=== PATIENT | male | born 1985 | race Caucasian/White ===

== ENCOUNTER 2020-12-05 15:42 | Outpatient (REF) | payer OTHER, SELFPAY ==
[2020-12-05 15:45] LABS: MANUAL DIFF FLAG NO
[2020-12-05 15:50] LABS: Basophils Absolute Auto 0.1 X10*3/uL (0.0-0.2); Basophils Percent Auto 1.1 % (0-2); Eosinophils Absolute Auto 0.2 X10*3/uL (0.0-0.4); Hematocrit 45.4 % (42-52); Hemoglobin 15.9 g/dl (14.0-18.0); Imm Gran Abs Auto 0.03 X10*3/uL (0.00-0.03); Imm Gran Pct Auto 0.4 % (0.0-0.4); Lymphocytes Percent Auto 39.6 % (20-40); Mean Corpuscular Hemoglobin 31.9 pg (27.0-33.0); Mean Corpuscular Volume 91.2 fL (80-98); Mean Platelet Volume 10.3 fL (9.4-12.4); Monocytes Absolute Auto 0.8 X10*3/uL (0.1-1.2); Neutrophils Absolute Auto 3.6 X10*3/uL (2.0-8.3); Neutrophils Percent Auto 46.9 % (45-73); Platelet Count 269 X10*3/uL (160-400); Red Blood Count 4.98 X10*6/uL (4.60-5.80); Red Cell Distribution Width 12.7 % (11.0-16.0); White Blood Count 7.6 X10*3/uL (4.8-10.8)
[2020-12-05 16:00] LABS: Glucose Urine UA NEG (NEG); Leukocyte Esterase Urine NEG (NEG); Nitrite Urine NEG (NEG); Urine Blood NEG (NEG); Urine Ketones NEG (NEG); Urine Protein NEG (NEG-TRACE)
[2020-12-05 16:07] LABS: Appearance Urine CLEAR; Color Urine YELLOW
[2020-12-05 16:14] LABS: Alanine Aminotransferase 55 U/L (0-40); Albumin Level 4.7 g/dL (3.5-5.0); Alkaline Phosphatase 49 U/L (39-117); Anion Gap 16 (12-20); Aspartate Amino Transferase 38 U/L (5-37); Bilirubin Total 0.9 mg/dL (0.0-1.0); Blood Urea Nitrogen 13 mg/dL (9-16); Calcium 10.2 mg/dL (8.4-10.2); Carbon Dioxide 26 mmol/L (22-29); Chloride 100 mmol/L (96-108); Cholesterol 242 mg/dL; Estimated Glomerular Filt Rate > 60; Glucose Fasting 105 mg/dL (60-99); HDL Cholesterol 57 mg/dL; LDL Cholesterol Calculated 112 mg/dl; Potassium 4.3 mmol/L (3.3-5.1); Sodium 138 mmol/L (135-145); Total Protein 7.6 g/dL (6.5-8.0); Triglycerides 366 mg/dL
== END 2020-12-05 15:43 | disposition home or self-care (01) ==
LOC: HO.LNP 15:42
PROVIDERS: Visit Provider Internal Medicine
DX: Z00.00 Encounter for general adult medical examination without abnormal findings (principal); I10 Essential (primary) hypertension; D72.820 Lymphocytosis (symptomatic)
CPT/HCPCS: 80053; 80061; 81003; 85025

== ENCOUNTER 2021-01-23 14:56 | Outpatient (REF) | payer OTHER, SELFPAY ==
[2021-01-23 15:33] LABS: Alanine Aminotransferase 47 U/L (0-40); Albumin Level 4.4 g/dL (3.5-5.0); Alkaline Phosphatase 52 U/L (39-117); Aspartate Amino Transferase 31 U/L (5-37); Bilirubin Direct 0.3 mg/dL (0.0-0.5); Bilirubin Total 0.8 mg/dL (0.0-1.0); Total Protein 7.3 g/dL (6.5-8.0)
== END 2021-01-23 14:57 | disposition home or self-care (01) ==
LOC: HO.LNP 14:56
PROVIDERS: Visit Provider Internal Medicine
DX: R79.89 Other specified abnormal findings of blood chemistry (principal)
CPT/HCPCS: 80076

== ENCOUNTER 2021-12-16 10:49 | Outpatient (REF) | payer OTHER, SELFPAY ==
[2021-12-16 10:53] LABS: MANUAL DIFF FLAG NO
[2021-12-16 11:50] LABS: Basophils Absolute Auto 0.1 X10*3/uL (0.0-0.2); Basophils Percent Auto 1.1 % (0-2); Eosinophils Absolute Auto 0.2 X10*3/uL (0.0-0.4); Eosinophils Percent Auto 2.4 % (0-4); Hematocrit 45.9 % (42.0-52.0); Imm Gran Abs Auto 0.02 X10*3/uL (0.00-0.03); Imm Gran Pct Auto 0.3 % (0.0-0.4); Lymphocytes Absolute Auto 3.4 X10*3/uL (1.2-4.9); Lymphocytes Percent Auto 44.6 % (20-40); Mean Corpuscular HGB Conc 34.9 g/dl (31.0-36.0); Mean Corpuscular Hemoglobin 32.2 pg (27.0-33.0); Mean Corpuscular Volume 92.4 fL (80.0-98.0); Mean Platelet Volume 10.4 fL (9.4-12.4); Monocytes Absolute Auto 0.7 X10*3/uL (0.1-1.2); Monocytes Percent Auto 9.1 % (2-11); Neutrophils Absolute Auto 3.2 x10*3/uL (2.0-8.3); Neutrophils Percent Auto 42.5 % (45-73); Platelet Count 271 X10*3/uL (160-400); Red Blood Count 4.97 X10*6/uL (4.60-5.80); Red Cell Distribution Width 12.3 % (11.0-16.0); White Blood Count 7.6 X10*3/uL (4.8-10.8)
[2021-12-16 11:57] LABS: Appearance Urine CLEAR; Color Urine YELLOW; Glucose Urine UA NEG (NEG); Leukocyte Esterase Urine NEG (NEG); Nitrite Urine NEG (NEG); Specific Gravity - Urine 1.015 (1.005-1.025); Urine Blood NEG (NEG); Urine Ketones NEG (NEG); Urine Protein NEG (NEG-TRACE)
[2021-12-16 12:04] LABS: Alanine Aminotransferase 67 U/L (0-40); Albumin Level 4.2 g/dL (3.5-5.0); Alkaline Phosphatase 58 U/L (39-117); Anion Gap 16 (12-20); Aspartate Amino Transferase 40 U/L (5-37); Bilirubin Total 0.7 mg/dL (0.0-1.0); Blood Urea Nitrogen 12 mg/dL (9-16); Calcium 9.8 mg/dL (8.4-10.2); Carbon Dioxide 27 mmol/L (22-29); Chloride 100 mmol/L (96-108); Cholesterol 241 mg/dL; Estimated Glomerular Filt Rate > 60; Glucose Fasting 115 mg/dL (60-99); HDL Cholesterol 52 mg/dL; Potassium 4.2 mmol/L (3.3-5.1); Sodium 139 mmol/L (135-145); Total Protein 7.2 g/dL (6.5-8.0); Triglycerides 590 mg/dL
[2021-12-16 12:14] LABS: RBC Urine 0 /HPF (0); WBC Urine 0 /HPF (0-4)
== END 2021-12-16 10:50 | disposition home or self-care (01) ==
LOC: HO.LNP 10:49
PROVIDERS: Visit Provider Internal Medicine
DX: Z00.00 Encounter for general adult medical examination without abnormal findings (principal); I10 Essential (primary) hypertension; D72.820 Lymphocytosis (symptomatic)
CPT/HCPCS: 80053; 80061; 81001; 85025

== ENCOUNTER 2023-06-23 09:18 | Outpatient (REF) | payer OTHER, SELFPAY ==
--- NOTE | ~2023-06-23 | FL_ITS ---
EXAMINATION: XR FLUOROSCOPY UPPER GI WITH AIR CLINICAL INFORMATION: Reflux. COMPARISON: None TECHNIQUE: Fluoroscopic air contrast upper GI examination was performed utilizing standard techniques with thin and thick barium and effervescent granules. Numerous spot images were obtained. FINDINGS: Dual and single contrast images of the esophagus demonstrate a patulous esophagus. No evidence of stricture, mass, or ulcerations identified. Minimal contrast is seen entering the stomach, concerning for dysfunction of the LES. A malignant stricture at the GE junction cannot be ruled out. FLUOROSCOPY TIME: 3 minutes 55 seconds Number of Cine: 15 DOSE AREA PRODUCT: 2747 uGy-m2 (microgray-meter squared) FL/FL upper GI series IMPRESSION: 1. Dilated esophagus with minimal emptying of contrast into the stomach concerning for dysfunction of the LES, likely achalasia. A malignant or possibly benign stricture cannot be excluded. Recommend gastroenterology consultation for endoscopic evaluation. Dr. Toure was notified regarding these findings This procedure was performed by Francisco Javier Pierre PA-C, and supervised by Dr. Trujillo
== END 2023-06-23 09:19 | disposition home or self-care (01) ==
LOC: HO.XRAY 09:18
PROVIDERS: PCP Internal Medicine; Visit Provider Internal Medicine
DX: K21.00 Gastro-esophageal reflux disease with esophagitis, without bleeding (principal)
CPT/HCPCS: 74240

== ENCOUNTER → 2023-06-23 09:23 | Outpatient (BNV) | payer OTHER, SELFPAY | PROVIDERS: PCP Internal Medicine; Visit Provider Radiology Diagnostic Radiology | DX: K21.9 Gastro-esophageal reflux disease without esophagitis (principal) | CPT/HCPCS: 74246 ==

== ENCOUNTER 2023-08-04 13:24 | Day surgery (SDC) | payer OTHER, SELFPAY ==
--- NOTE | 2023-08-03 09:53 | HO.ANESPROP2 ---
Documented by User: Mita Sherman NP 08/03/23 09:53 HPI - Anesthesia Eval Consult details Narrative: 38yo M for Upper Endoscopy with Balloon Dilitation [facility] Past Medical History Medical History Lymphocytosis GERD (gastroesophageal reflux disease) Anxiety Depression HTN (hypertension) Social History Social History Patient Tobacco Use Status: Never used Tobacco Meds Allergies Allergy/AdvReac Type Severity Reaction Status Date / Time No Known Allergies Allergy Verified 08/04/23 14:01 Home Medications Medication Instructions Recorded Confirmed Last Taken Type amlodipine 10 mg tablet 10 mg PO DAILY 08/03/23 08/03/23 Unknown History citalopram 20 mg tablet 20 mg PO DAILY 08/03/23 08/03/23 Unknown History pantoprazole 40 mg tablet,delayed 40 mg PO DAILY 08/03/23 08/03/23 Unknown History release valsartan 320 1 tab PO DAILY 08/03/23 08/03/23 Unknown History mg-hydrochlorothiazide 12.5 mg tablet Assessment and Plan Assessment Anesthesia Assessment: Chart Reviewed Documented by User: Caroline Bustillos MD 08/04/23 14:03 [facility] Past Medical History Medical History Lymphocytosis GERD (gastroesophageal reflux disease) Anxiety Depression HTN (hypertension) Social History Social History Patient Tobacco Use Status: Never used Tobacco Meds Allergies Allergy/AdvReac Type Severity Reaction Status Date / Time No Known Allergies Allergy Verified 08/04/23 14:01 Home Medications Medication Instructions Recorded Confirmed Last Taken Type amlodipine 10 mg tablet 10 mg PO DAILY 08/03/23 08/03/23 Unknown History citalopram 20 mg tablet 20 mg PO DAILY 08/03/23 08/03/23 Unknown History pantoprazole 40 mg tablet,delayed 40 mg PO DAILY 08/03/23 08/03/23 Unknown History release valsartan 320 1 tab PO DAILY 08/03/23 08/03/23 Unknown History mg-hydrochlorothiazide 12.5 mg tablet Exam Airway Mallampati Class: II TM Dist: >3cm Neck ROM: Full Loose/Missing/Broken Teeth: No Heart: RRR Lungs: CTA Assessment and Plan Assessment Anesthesia Assessment: Anesthesia Plan Discussed Final Anesthetic Review NPO: Yes ASA Class: II Final Preanesthetic Review: Meds/Allgs Chart Reviewed, Consent Obtained/Reviewed and Anes Risks/Benef Reviewed Patient Risk: Low Procedure Risk: Intermediate Anesthetic Plan Anesthetic Plan: MAC: Disposition: Standard PACU
[2023-08-04 13:35] VITALS: BMI 29.2
[2023-08-04 13:39] VITALS: BMI 29.3
[2023-08-04] MEDS: Lactated Ringers 1,000 ML 100 ML IVCONT (13:53)
--- NOTE | 2023-08-04 14:02 | MHC.SHP ---
Pre-Procedural Eval Section A Date of Service: 08/04/23 The patient is an INPATIENT: No Changes since office visit: No Cold of Flu in the past 2 weeks, No New Medical Problems, No Changes in Medication and No Patient answered all questions The History & Physical has been completed within 30 days and I have reviewed it.: Yes Section B Chief Complaint: Abnormal findings on diagnostic imaging of other p Allergies: Allergies Allergy/AdvReac Type Severity Reaction Status Date / Time No Known Allergies Allergy Verified 08/04/23 14:01 Plan I have reviewed the history and physical and performed a pertinent physical examination on my patient. No changes have occurred unless specified. Time Spent With Patient Time: Total time managing care of this patient today ____ minutes.
[2023-08-04 14:48] VITALS: BP 137/88; PULSE 77; RESP 18; TEMP 36.1; O2SAT 97
[2023-08-04 15:06] VITALS: BP 132/96; PULSE 65; RESP 16; TEMP 36.3; O2SAT 97
--- NOTE | 2023-08-04 22:09 | OP_ITS ---
DATE OF SERVICE: 08/04/2023 SURGEON: Tanmay Goodman MD INDICATIONS: Dysphagia and abnormal upper GI series. PREOPERATIVE DIAGNOSIS: POSTOPERATIVE DIAGNOSIS: PROCEDURE PERFORMED: Upper endoscopy with balloon dilation and biopsy. ESTIMATED BLOOD LOSS: COMPLICATIONS: ANESTHESIA: Monitored anesthesia care. ASSISTANTS: SPECIMENS: DESCRIPTION OF PROCEDURE: A history and physical was performed. The risks and benefits of the procedure were explained to the patient. Informed consent was obtained. The patient was placed in the left lateral decubitus position. The Olympus video gastroscope was introduced into the esophagus, stomach, and duodenum. Examination was performed. The scope was removed. He tolerated the procedure well and was taken to the recovery area in stable condition. FINDINGS: Esophagus: The esophagus was dilated and showed some retained food and saliva suggestive of underlying achalasia. The EG junction did not appear to appropriately relax. Two large pieces of food were pushed through into the stomach easily with no difficulty. Stomach: The stomach showed a couple of benign-appearing gastric polyps in the body measuring less than 5 mm. Duodenum: The bulb and 2nd portion were normal. Biopsies were obtained from the antrum and gastric polyps in the stomach. Next, balloon dilation of the EG junction to 20 mm was performed for 2 inflations for 60 seconds each with no difficulty. The scope easily passed through into the stomach following dilation. Biopsies were then obtained from the EG junction, which showed no evidence of malignancy. Retroflexed examination in the stomach was also normal. IMPRESSION: Achalasia. RECOMMENDATION: 1. Follow up the biopsy results. 2. Further diagnosis with motility testing will be arranged pending his clinical course. MD ROSAURA Drake/GISELLE / [phone]
== END 2023-08-04 15:39 | disposition home or self-care (01) ==
PROVIDERS: PCP Internal Medicine; Visit Provider Internal Medicine Gastroenterology
PROC: (CPT 43249; principal; 2023-08-04 14:50)
DX: R13.19 Other dysphagia (principal); K22.0 Achalasia of cardia; K29.50 Unspecified chronic gastritis without bleeding; K31.7 Polyp of stomach and duodenum; K21.9 Gastro-esophageal reflux disease without esophagitis; I10 Essential (primary) hypertension; D72.820 Lymphocytosis (symptomatic); F41.9 Anxiety disorder, unspecified; Z79.899 Other long term (current) drug therapy
CPT/HCPCS: 43249; 43239; 88305; 88342; C1726; C9113; J1596; J2704; J3010

== ENCOUNTER 2024-04-27 11:04 | Outpatient (REF) | payer OTHER, SELFPAY ==
[2024-04-27 11:14] LABS: MANUAL DIFF FLAG NO
[2024-04-27 12:24] LABS: Basophils Absolute Auto 0.1 X10*3/uL (0.0-0.2); Basophils Percent Auto 1.3 % (0-2); Eosinophils Absolute Auto 0.2 X10*3/uL (0.0-0.4); Eosinophils Percent Auto 2.8 % (0-4); Hematocrit 45.6 % (42.0-52.0); Hemoglobin 16.1 g/dl (14.0-18.0); Imm Gran Abs Auto 0.03 X10*3/uL (0.00-0.03); Imm Gran Pct Auto 0.4 % (0.0-0.4); Lymphocytes Absolute Auto 2.9 X10*3/uL (1.2-4.9); Lymphocytes Percent Auto 36.5 % (20-40); Mean Corpuscular HGB Conc 35.3 g/dl (31.0-36.0); Mean Corpuscular Volume 93.4 fL (80.0-98.0); Mean Platelet Volume 10.3 fL (9.4-12.4); Monocytes Absolute Auto 0.6 X10*3/uL (0.1-1.2); Monocytes Percent Auto 8.1 % (2-11); Neutrophils Percent Auto 50.9 % (45-73); Platelet Count 268 X10*3/uL (160-400); Red Blood Count 4.88 X10*6/uL (4.60-5.80); Red Cell Distribution Width 12.2 % (11.0-16.0); White Blood Count 7.9 X10*3/uL (4.8-10.8)
[2024-04-27 12:29] LABS: Appearance Urine Clear; Color Urine Straw; Glucose Urine UA Negative (Negative); Leukocyte Esterase Urine Negative (Negative); Nitrite Urine Negative (Negative); PH 7.5 (5.0-9.0); Specific Gravity - Urine 1.015 (1.005-1.025); Urine Blood Negative (Negative); Urine Ketones Negative (Negative); Urine Protein Negative (Neg-Trace)
[2024-04-27 12:34] LABS: Bacteria Urine None Seen (None Seen); Hyaline Casts Urine 0-2 /LPF (0-2); RBC Urine 0-2 /HPF (0-2); Squamous Epithelial Cell Urine 0-2 /HPF (0-2); WBC Urine 0-5 /HPF (0-5)
[2024-04-27 12:43] LABS: Alanine Aminotransferase 83 U/L (0-40); Albumin Level 4.3 g/dL (3.5-5.0); Alkaline Phosphatase 58 U/L (39-117); Anion Gap 14 (12-20); Aspartate Amino Transferase 63 U/L (5-37); Bilirubin Total 0.8 mg/dL (0.0-1.0); Blood Urea Nitrogen 10 mg/dL (9-16); Calcium 9.9 mg/dL (8.4-10.2); Carbon Dioxide 29 mmol/L (22-29); Chloride 100 mmol/L (96-108); Cholesterol 220 mg/dL (<200); Estimated Glomerular Filt Rate > 60; Glucose Fasting 104 mg/dL (60-99); HDL Cholesterol 67 mg/dL (>40); LDL Cholesterol Calculated 122 mg/dL (<100); Potassium 4.1 mmol/L (3.3-5.1); Sodium 139 mmol/L (135-145); Total Protein 7.4 g/dL (6.5-8.0); Triglycerides 156 mg/dL (<150)
[2024-04-27 12:50] LABS: Cortisol Random 18.6 ug/dL
[2024-04-27 12:51] LABS: PSA,Total (Free>4and<10) 0.66 ng/mL (0.00-4.00)
[2024-04-27 12:57] LABS: TSH reflex Free T4 3.11 uIU/mL (0.32-4.0)
[2024-05-05 21:42] LABS: Testosterone, Total 502 ng/dL (250-1100)
== END 2024-04-27 11:05 | disposition home or self-care (01) ==
LOC: HO.LNP 11:04
PROVIDERS: Visit Provider Internal Medicine
DX: Z00.00 Encounter for general adult medical examination without abnormal findings (principal); I10 Essential (primary) hypertension; D72.820 Lymphocytosis (symptomatic); E78.1 Pure hyperglyceridemia; F43.10 Post-traumatic stress disorder, unspecified; Z12.5 Encounter for screening for malignant neoplasm of prostate
CPT/HCPCS: 80053; 80061; 81001; 82533; 84153; 84403; 84443; 85025

== ENCOUNTER 2024-10-02 10:19 | Outpatient (REF) | payer BC, SELFPAY ==
--- OUTSIDE RECORDS SUMMARY | 2024-10-02 11:36 | XMS_ITS ---
Author Organization Jimmy Toure MD Address [address] [place] [phone] Care Team Providers Care Lead Nuclear Medicine Technologist Name Role Phone Jimmy Toure Primary Care Provider Allergies No Known Allergies Results Component Value Reference Range Notes Occult Blood, Stool, Guaiac Reviewed date:05/05/2024 02:02:19 PM Interpretation:Negative Performing Lab: Notes/Report: Negative Occult Blood, Stool, Guaiac Neg REASON FOR VISIT annual visit/ must see back LFT's, had upper endoscopy with dilitation at in [place] Medications Medication SIG (Take, Route, [...] Problem Status W/U Status Risk Notes Problem [id number] Achalasia, esophageal (K22.0) Active confirmed Vital Signs Blood pressure systolic 120 mm Hg 05/05/20 24 Blood pressure diastolic 100 mm Hg 024 Height 69 in 05/05/2024 Weight 205 lbs 05/05/2024 BMI 30.27 kg/m2 05/05/2024 Encounters Encounter Location Date Provider Diagnosis Jimmy Toure MD [address] [place] [address] [place] [phone] 05/05/2024 Jimmy Toure Essential hypertension I10 ; [...] (ICD-10 - K22.0) seeing a psych in [place] 05/05/2024 History of gout (ICD-10 - Z87.39) [...] counciller Achalasia, esophageal seeing a psych in [place] Elevated LFTs says he is drinking too much. will recheck in six months Colon cancer screening guaiac negative Depression screening negative screen Next Appt Details Follow Up: 3 Months, Reason: Provider Name:Jimmy lindsey, 2025 07:45:00 AM, [address] [place] [address], [address], [phone], Provider Name:Jimmy lindsey, 05/08/2025 01:00:00 PM, [address] [place] [address], Suite [facility], [place], [place], [phone], Progress Notes * ALINE NORWOODDOB:1985 (39 yo M)Acc No.[id number]:05/05/2024 Progress Notes Patient:?ALINE NORWOOD Provider:?Jimmy Toure MD :1985???Age:39 Y???Sex:Male Destin e:05/05/2024 Address:[address] [place] [address] [phone] Subjective: * Chief Complaints: * ???annual visit/ must see noris thuy SEAY'shad upper endoscopy with dilitation at in [place] * HPI: ???Depression Screening:?PHQ-9?Little interest or pleasure in doing things?Not at all,?Feeling down, depressed, or hopeless?Not at all,?Trouble falling or staying asleep, or sleeping too much?Not at all,?Feeling tired or having little energy?Not at all,?Poor appetite or overeating?Not at all,?Feeling bad about yourself or that you are a failure, or have let yourself or your family down?Not at all,?Trouble concentrating on things, such as reading the newspaper or watching television?Not at all,?Moving or speaking so slowly that other people could have noticed; or the opposite, being so fidgety or restless that you have been moving around a lot more than usual?Not at all,?Thoughts that you would be better off or of hurting yourself in some way?Not at all,?Total Score?0.?Interpretation and Intervention?Depression Screening Findings?Negative,?Follow-Up for Depression?: review of PHQ-9 found negative result, no follow-up needed.?Symptom(s):? patient is a 39 yo male here or annual visit with review of recent labs and follow up of chronic isues, last endoscopy worked. had lost 25 lbs. * ROS:?General/Constitutional:?Patient denies?chills, fatigue, fever, headache.?Change in appetite?denies.?Chills?denies.?Fever?denies.?Ophthalmologic:?Blurred vision?denies.?Discharge?denies.?Pain?denies.?ENT:?Patient denies?decreased sense of smell, any loss of taste, sore throat.?Decreased hearing?denies.?Sore throat?denies.?Swollen glands?denies.?Endocrine:?Cold intolerance?denies.?Excessive thirst?denies.?Heat intolerance?denies.?Weight loss?denies.?Respiratory:?Cough?denies.?Shortness of breath at rest?denies.?Shortness of breath with exertion?denies.?Wheezing?denies.?Cardiovascular:?Chest pain at rest?denies.?Chest pain with exertion?denies.?Irregular heartbeat?denies.?Shortness of breath?denies.?Gastrointestinal:?Abdominal pain?denies.?Change in bowel habits?denies.?Diarrhea?denies.?Nausea?denies.?Rectal bleeding?denies.?Vomiting?denies .?Genitourinary:?Blood in urine?denies.?Difficulty urinating?denies.?Frequent urination?denies.?Musculoskeletal:?Patient denies?muscle aches.?Painful joints?denies.?Weakness?denies.?Peripheral Vascular:?Patient denies?red and blue toes.?Skin:?Dry skin?denies.?Itching?denies.?Denies?Mole(s),? changes in moles, new moles or any lesions of concern.?Denies?Photosensitivity.?Rash?denies.?Neurologic:?Dizziness?denies.?Fainting?denies.?Headache?denies.? * Medical History:? * Surgical History:? * Hospitalization/Major Diagno stic Procedure:? * Family History:?Father: dece ased 38 yrs.?Mother: alive 63 yrs.?1 sister(s) . .? Father- Suicide mother- Healthy, Denies mental health/substance abuse family history, Denies mental health/substance abuse family history. * Social History:?Tobacco Use:?Tobacco Use/Smoking?Patient is a?nonsmoker,?Additional Findings: Tobacco Non-User?Current non-smoker, currently using no form of tobacco.?Drugs/Alcohol:?Alcohol Screen?Did you have a drink containing alcohol in the past year??Yes,?How often did you have a drink containing alcohol in the past year??2 to 4 times a month (2 points),?How many drinks did you have on a typical day when you were drinking in the past year??1 or 2 drinks (0 point),?How often did you have 6 or more drinks on one occasion in the past year??Never (0 point),?Points?2,?Interpretation?Negative.?Miscellaneous:?Caffeine: yes, frequency: once a week. no Children. Exercise: yes, 1-2 times per week biking 20-30 miles a couple times a week. Home smoke detector use: yes. Housing: owning. Living with: alone. Marital status: single. Occupation: works part-time. Pets: dog x1. no Travel outside of the [place]. * Medications:?TakingCitalopra m Hydrobromide 20 MG Tablet TAKE 1 TABLET [...] reviewed and reconciled with the patient * Allergies:?N.K.D.A.yes[Aller gies Verified] Objective: * Vitals:?Ht: 69, Wt:205, BMI: 30.27, BP:120/100. * ???Past Orders: ???Lab:Lipid Panel (Order Da te - 04/27/2024) (Collection Date - 04/27/2024) ? Value Reference Range ?Triglycerides 156 H <150 - mg/dL ?Cholesterol 220 H <200 - m g/dL ?LDL Cholesterol Calculated 122 H <100 - mg/dL ?HDL Cholesterol 67 >40 - mg/dL ???Lab:Complete Blood Count Auto Diff (Order Date - 04/27/2024) (Collection Date - 04/27/2024) ? Value Reference Range ?White Blood Count 7.9 4. 8-10.8 - X10*3/uL ?Red Blood Count 4.88 4.60 -5.80 - X10*6/uL ?Hemoglobin 16.1 14.0-18.0 - g/dl ?Hematocrit 45.6 42.0-52.0 - % ?Mean Corpuscular Volume 93.4 80.0-98.0 - fL ?Mean Corpuscular Hemoglobin 33.0 27.0-33.0 - pg ?Mean Corpuscular HGB Conc 35.3 31.0-36.0 - g/dl ?Red Cell Distribution Width 12.2 11.0-16.0 - % ?Platelet Count 268 160-4 00 - X10*3/uL ?Mean Platelet Volume 10.3 9.4-12.4 - fL ?Neutrophils Percent Auto 50.9 45-73 - % ?Imm Gran Pct Auto 0.4 0. 0-0.4 - % ?Lymphocytes Percent Auto 36.5 20-40 - % ?Monocytes Percent Auto 8.1 2-11 - % ?Eosinophils Percent Auto 2.8 0-4 - % ?Basophils Percent Auto 1.3 0-2 - % ?NRBC Pct Auto 0.0 0.0-0. 2 - /100WBC ?Neutrophils Absolute Auto 4.0 2.0-8.3 - x10*3/uL ?Imm Gran Abs Auto 0.03 0. 00-0.03 - X10*3/uL ?Lymphocytes Absolute Auto 2.9 1.2-4.9 - X10*3/uL ?Monocytes Absolute Auto 0.6 0.1-1.2 - X10*3/uL ?Eosinophils Absolute Auto 0.2 0.0-0.4 - X10*3/uL ?Basophils Absolute Auto 0.1 0.0-0.2 - X10*3/uL ?NRBC Abs Auto 0.000 0.0-0. 012 - X10*3/uL ???Lab:Cortisol Random (Orde r Date - 04/27/2024) (Collection Date - 04/27/2024) ? Value Reference Range ?Cortisol Random 18.6 - ug /dL ???Lab:UA ClnCatch+Micro w/r flx Cult (Order Date - 04/27/2024) (Collection Date - 04/27/2024) ? Value Reference Range ?Color Urine Straw - ?Appearance Urine Clear - ?PH 7.5 5.0-9.0 - ?Glucose Urine UA Negative Neg ative - mg/dL ?Urine Blood Negative Negative - ?Specific [place] - Urine 1.015 1.005-1.025 - ?Urine Protein Negative Neg-Tr noel - mg/dL ?Urine Ketones Negative Negati ve - mg/dL ?Nitrite Urine Negative Negati ve - ?Leukocyte Esterase Urine Negative Negative - ?RBC Urine 0-2 0-2 - /HPF ?WBC Urine 0-5 0-5 - /HPF ?Squamous Epithelial Cell Urine 0-2 0-2 - /HPF ?Bacteria Urine None Seen None Seen - ?Hyaline Casts Urine 0-2 0-2 - /LPF ???Lab:TSH reflex Free T4 (O rder Date - 04/27/2024) (Collection Date - 04/27/2024) ? Value Reference Range ?TSH reflex Free T4 3.11 0 .32-4.0 - uIU/mL ???Lab:PSA,Total (Free>4and< 10) (Order Date - 04/27/2024) (Collection Date - 04/27/2024) ? Value Reference Range ?PSA,Total (Free>4and<10) 0.66 0.00-4.00 - ng/mL * Examination: ???General Examination: ?GENERAL APPEARANCE:?well developed, well nourished, in no acute distress.?HEAD:?normocephalic, atraumatic.?EYES:?pupils equal, round, reactive to light and accommodation, sclera non-icteric.?EARS:?normal.?ORAL CAVITY:?mucosa moist.?THROAT:?clear.?NECK/THYROID:?neck supple, full range of motion, no cervical lymphadenopathy, no bruits.?SKIN:?warm and dry, no suspicious lesions.?HEART:?regular rate and rhythm, S1, S2 normal, no murmurs.?LUNGS:?clear to auscultation bilaterally.?ABDOMEN:?soft, nontender, nondistended, bowel sounds present, normal, no organomegaly , no masses palpable.?RECTAL EXAM:?normal tone, no external hemorrhoids, no masses palpable, prostate normal, stool guaiac negative.?MALE GENITOURINARY:?circumcised, no testicular mass, testes descended bilaterally.?EXTREMITIES:?no clubbing, cyanosis, or edema.?NEUROLOGIC:?nonfocal, motor strength normal upper and lower extremities, sensory exam intact.? Assessment: * Assessment: 1.?Annual physical exam - Z0 0.00 (Primary)?2.?Essential hypertension - I10?3.?Anxiety - F41.9?4.?PTSD (post-traumatic stress disorder) - F43.10?5.?Achalasia, esophageal - K22.0?6.?History of gout - Z87.39?7.?Elevated LFTs - R79.89 8.?Colon cancer screening - Z12.11?9.?Depression screening - Z13.31? Plan: * Treatment: 2.?Essential hypertension? Continue Valsartan-hydroCHLOROthiazide Tablet, 320-12.5 MG, 1 tablet, Orally, Once a day, 90 days, 90, Refills 4;?Continue amLODIPine Besylate Tablet, 10 MG, take 1 tablet by mouth every day, Orally, Once a day, 90 days, 90, Refills 4.?? Notes: need testerone level. bp sitll a little high but doesn't take medicines, testosterone is pending with [facility]?? 3.?Anxiety? Continue Citalopram Hydrobromide Tablet, 20 MG, take 1 tablet by mouth every day, Orally, Once a day, 90 days, 90, Refills 3.?? Notes: stable?? 4.?PTSD (post-traumatic stre ss disorder)? Notes: seeing a counciller?? 5.?Achalasia, esophageal? Notes: seeing a psych in [place]?? 6.?History of gout? Continue Indomethacin Capsule, 50 MG, 1 capsule with food or milk, Orally, Three times a day, 10 days, 30 Capsule, Refills 2.?? 7.?Elevated LFTs? Notes: says he is drinking too much. will recheck in six months?? 8.?Colon cancer screening?LAB: Occult Blood, Stool, Guaiac?Negative ? Value Reference Range ?Occult Blood, Stool, Guaiac Neg Notes: guaiac negative??9.?Depression screening? Notes: negative screen?? * Procedure Codes:?40909 TEST FOR BLOOD, FECES * Preventive Medicine:? ??Counseling:?Care goal follow-up plan:?Counseling for abnormal BMI provided?Yes,?Above Normal BMI Follow-up?Giving encouragement to exercise.? * Follow Up:?3 Months * * Sign off status: Completed true * Provider:?Jimmy Toure MD Date:?1 Generated for Palmira peres/Willian/Tamikoitting on:?10/02/2024 11:36 AM EDT History and Physical Notes * HPI [...]
--- OUTSIDE RECORDS SUMMARY | 2024-10-02 11:36 | XMS_ITS | Encounter Summary ---
Author Organization [facility] Address [address] [place] [address] Care Team Providers Care Bench Machine Operator Name Role Phone Jimmy Toure MD Primary Care Provider [phone] Encounter Details Date Type Department Care Team (Late st Contact Info) Description 12/28/2023 Scanned Document [facility] GASTRO SCAN Gastroenterology, Scan Social History Tobacco Use Types Packs/Day Years Used Date Smoking Tobacco: Never Assessed Sex and Gender Information Value Date Recorded Sex Assigned at Male 12/29/2023 11:32 AM EDT Gender Identity Male 12/29/2023 11:32 AM EDT Sexual Orientation Heterosexual (straight) 12/28 11:32 AM EDT documented as of this encounter Plan of Treatment Not on file documented as of this encounter Visit Diagnoses Not on filedocumented in this encounter Care Teams Bench Machine Operator Relationship Specialty Start Date End Date Jimmy Toure MD [address] [place] [address] [place] [address] PCP - General Internal Medicine 12/28/23 documented as of this encounter
--- OUTSIDE RECORDS SUMMARY | 2024-10-02 11:36 | XMS_ITS ---
Author Organization Jimmy Toure MD Address [address] [place] [phone] Care Team Providers Care County Demonstrator Name Role Phone Jimmy Toure Primary Care Provider REASON FOR VISIT LFT Encounters Encounter Location Date Provider Diagnosis Jimmy Toure MD [address] [place] [phone] 10/02/2024 Jimmy Toure Elevated LFTs R79.89 Assessments Encounter Date Diagnosis (ICD Code) Assessment Notes Treatment Notes Treatment Clinical Notes Section Notes 10/02/2024 Elevated LFTs (ICD-10 - R79.89) Plan Of Treatment Pending Test Test Name Order Date Liver Panel 10/02/2024 Next Appt Details Provider Name:Jimmy lindsey, 2025 07:45:00 AM, [address] [place] [address], [phone], Provider Name:Jimmy lindsey, 05/08/2025 01:00:00 PM, [address] [place] [address], [phone], Progress Notes * ALINE NORWOODDOB:1985 (39 yo M)Acc No.[id number]:10/02/2024 Progress Note Patient:?ALINE NORWOOD Provider:?Jimmy Toure MD :1985???Age:39 Y???Sex:Male Destin e:10/02/2024 Address: [employer] [facility] [id number] Subjective: * Chief Complaints: * ???1. LFT. * Medical History:? Objective: * Vitals:? Assessment: * Assessment: 1.?Elevated LFTs - R79.89??? Plan: * Treatment: * Procedure Codes:?86290 VENIP UNCT, ROUTINE* * * The named appointment provid er may or may not be the originator of this progress note, and it is not deemed complete until electronically signed by the appointment provider. Sign off status: Pending * Provider:?Jimmy Toure MD Date:?0 10/02/2024 Generated for Palmira peres/Willian/eTthomsmitting on:?10/02/2024 11:36 AM EDT
--- OUTSIDE RECORDS SUMMARY | 2024-10-02 11:37 | XMS_ITS ---
Author Organization [facility] Address [address] [facility] [address] [place] [phone] Care Team Providers Care Fire Engine Pump Operator Name Role Phone Tejal SCHERER, Jimmy Primary Care Provider Tanmay Adkins Jr REASON FOR VISIT Patient presents today for throwing up, uncomfortable. Encounters Encounter Location Date Provider Diagnosis [facility] [address] [place] [phone] 12/02/2023 Tanmay Goodman Jr Plan Of Treatment No Information Progress Notes * ALINE NORWOOD DDOB:1985 ( 39 yo M)Acc No.[id number]:12/02/2023 Progress Notes Patient:?ALINE NORWOOD Provider:?Tanmay Goodman MD :1985???Age:38 Y???Sex:Male Destin e:12/02/2023 Address:[address] [place] [address] [address] [id number] Pcp:Jimmy Toure MD Subjective: * Chief Complaints: * ???1. Patient presents today for throwing up, uncomfortable.. * Medical History:? Objective: * Vitals:? Assessment: Plan: * Treatment: * * The named appointment provid er may or may not be the originator of this progress note, and it is not deemed complete until electronically signed by the appointment provider. Sign off status: Pending * Provider:?Tanmay Goodman MD Date:?0 12/02/2023 Generated for Palmira peres/Willian/Tamikoitting on:?10/02/2024 11:36 AM EDT
--- OUTSIDE RECORDS SUMMARY | 2024-10-02 11:37 | XMS_ITS | Encounter Summary ---
Author Organization [facility] Address [address] [place] [address] Care Team Providers Care Agronomy Manager Name Role Phone Jimmy Toure MD Primary Care Provider [phone]- [phone] Encounter Details Date Type Department Care Team (Late st Contact Info) Description 01/05/2024 Scanned Document [facility] GASTRO SCAN Gastroenterology, Scan Social History Tobacco [...] on filedocumented in this encounter Care Teams Agronomy Manager Relationship Specialty Start Date End Date Jimmy Toure MD [address] [place] [address] [place] [address] PCP - General Internal Medicine 12/28/23 documented as of this encounter
--- OUTSIDE RECORDS SUMMARY | 2024-10-02 11:37 | XMS_ITS | Patient Health Record ---
Author Organization Jimmy Toure MD Address [address] [place], [place] [id number] Care Team Providers Care Provider Scribe Name Role Phone Jimmy Toure Primary Care Provider Allergies No Known Allergies Results Component Value Reference Range Notes Cortisol Random Reviewed date:04/27/2024 01:04:38 PM Interpretation: Performing Lab:[facility], [address] [place] [phone] Notes/Report: Cortisol Random 18.6 Reference Range*: Before 10 am 6.2-19.4 ug/dL After 5 pm 2.3-11.9 ug/dL *Please interpret above results accordingly. This test was performed using the Green chemiluminescent method. Values obtained from different assay methods cannot be used interchangeably. Patients receiving fludrocortisone, prednisolone or prednisone may show artificially elevated cortisol values due to cross-reactivity. Complete Blood Count Auto Di ff Reviewed date:04/27/2024 12:32:43 PM Interpretation: Performing Lab:[facility], [address] [place] [phone] Notes/Report: White Blood Count 7.9 4.8-10.8 X10*3/uL Red Blood Count 4.88 4.60-5.80 X10*6/uL Hemoglobin 16.1 14.0-18.0 g/dl Hematocrit 45.6 42.0-52.0 % Mean Corpuscular Volume 93.4 80.0-98.0 fL Mean Corpuscular Hemoglobin 33.0 27.0-33.0 pg Mean Corpuscular HGB Conc 35.3 31.0-36.0 g/dl Red Cell Distribution Width 12.2 11.0-16.0 % Platelet Count 268 160-400 X10*3/uL Mean Platelet Volume 10.3 9.4-12.4 fL Neutrophils Percent Auto 50.9 45-73 % Imm Gran Pct Auto 0.4 0.0-0.4 % Lymphocytes Percent Auto 36.5 20-40 % Monocytes Percent Auto 8.1 2-11 % Eosinophils Percent Auto 2.8 0-4 % Basophils Percent Auto 1.3 0-2 % NRBC Pct Auto 0.0 0.0-0.2 /100WBC Neutrophils Absolute Auto 4.0 2.0-8.3 x10*3/u L Imm Gran Abs Auto 0.03 0.00-0.03 X10*3/uL Lymphocytes Absolute Auto 2.9 1.2-4.9 X10*3/u L Monocytes Absolute Auto 0.6 0.1-1.2 X10*3/uL Eosinophils Absolute Auto 0.2 0.0-0.4 X10*3/u L Basophils Absolute Auto 0.1 0.0-0.2 X10*3/uL NRBC Abs Auto 0.000 0.0-0.012 X10*3/uL Comprehensive [place]. Panel Fa st Reviewed date:05/05/2024 12:56:37 PM Interpretation:see back 05-05-24 Performing Lab:[facility], [address] [place] [phone] Notes/Report: Sodium 139 135-145 mmol/L Potassium 4.1 3.3-5.1 mmol/L Chloride 100 96-108 mmol/L Carbon Dioxide 29 22-29 mmol/L Anion Gap 14 12-20 Blood Urea Nitrogen 10 9-16 mg/dL Creatinine 0.85 0.5-1.4 mg/dL Estimated Glomerular Filt Rate > 60 NOTE: For -[place]amb[place] individuals, multiply the result by 1.210. Chronic Kidney Disease: Estimated GFR < 60 mL/min/1.73m2 Severe Kidney Disease: Estimated GFR < 15 mL/min/1.73m2 Glucose Fasting 104 60-99 mg/dL A fasting glucose from 100-125 mg/dl is considered impaired (pre-diabetes). Calcium 9.9 8.4-10.2 mg/dL Bilirubin Total 0.8 0.0-1.0 mg/dL Aspartate Amino Transferase 63 5-37 U/L Alanine Aminotransferase 83 0-40 U/L Total Protein 7.4 6.5-8.0 g/dL Albumin Level 4.3 3.5-5.0 g/dL Alkaline Phosphatase 58 39-117 U/L Lipid Panel Reviewed date:04/27/2024 01:03:36 PM Interpretation: Performing Lab:[facility], [address] [place] [phone] Notes/Report: Triglycerides 156 <150 mg/dL Desirable Triglyceride: less than 150 mg/dL Borderline High Triglyceride 150-199 mg/dL High Triglyceride: 200-499 mg/dL Very High Triglyceride: greater than or equal to 5OO mg/dL Cholesterol 220 <200 mg/dL Desirable Cholesterol: less than 200 mg/dL Borderline High Cholesterol: 200-239 mg/dL High Cholesterol: greater than 239 mg/dL LDL Cholesterol Calculated 122 <100 mg/dL Desirable LDL: less than 100 mg/dL Near Optimal/Above Optimal LDL: 110-129 mg/dL Borderline High LDL: 130-159 mg/dL High LDL: 160-189 mg/dL Very High LDL: greater than or equal to 190 mg/dL HDL Cholesterol 67 >40 mg/dL Desirable HDL: greater than 40 mg/dL Note: This HDL assay may give artificially low results in patients with liver disease. PSA,Total (Free>4and<10) Reviewed date:04/27/2024 01:03:25 PM Interpretation: Performing Lab:[facility], [address] [place] [phone] Notes/Report: PSA,Total (Free>4and<10) 0.66 0.00-4.00 ng/mL A Free PSA was not performed: The percentage of Free PSA can be used to enhance the differentiation of prostate cancer from benign prostatic disease in subjects whose PSA levels are between 4.0 and 10.0 ng/mL. For subjects whose PSA levels are below 4.0 or above 10.0 ng/mL, the risk of prostate cancer is determined on the basis of the PSA alone. Therefore the % Free PSA is recommended only for those subjects whose PSA levels are between 4.0 and 10.0 ng/mL. PSA methodology: Green Alinity i Chemiluminescent Microparticle Immunoassay (CMIA) TSH reflex Free T4 Reviewed date:04/27/2024 01:03:45 PM Interpretation: Performing Lab:[facility], [address] [place] [phone] Notes/Report: TSH reflex Free T4 3.11 0.32-4.0 uIU/mL Testosterone, Total Reviewed date:05/07/2024 09:19:47 AM Interpretation: Performing Lab:[facility], [address] [place] [phone] Notes/Report: Testosterone, Total 256 383-1736 ng/dL For additional information, please refer to http://education.[employer]/faq/ TotalTestosteroneLCMSMSFAQ 165 (This link is being provided for informational/ educational purposes only.) This test was developed and its analytical performance characteristics have been determined by [facility] [place]. It has not been cleared or approved by the U.S. Food and Drug Administration. This assay has been validated pursuant to the CLIA regulations and is used for clinical purposes. THIS TEST WAS PERFORMED AT: [facility]/[address] [phone] BEN SCHMIDT MD,PHD UA [employer] w/rflx Cul t Reviewed date:04/27/2024 04:20:37 PM Interpretation: Performing Lab:[facility], [address] [place] [phone] Notes/Report: Urine, Clean Catch Color Urine Straw Appearance Urine Clear PH 7.5 5.0-9.0 Glucose Urine UA Negative Negative mg/dL Urine Blood Negative Negative Specific [place] - Urine 1.015 1.005-1.025 Urine Protein Negative Neg-Trace mg/dL Urine Ketones Negative Negative mg/dL Nitrite Urine Negative Negative Leukocyte Esterase Urine Negative Negative RBC Urine 0-2 0-2 /HPF WBC Urine 0-5 0-5 /HPF Squamous Epithelial Cell Urine 0-2 0-2 /HPF Bacteria Urine None Seen None Seen Hyaline Casts Urine 0-2 0-2 /LPF Occult Blood, Stool, Guaiac Reviewed date:05/05/2024 02:02:19 PM Interpretation:Negative Performing Lab: Notes/Report: Negative Occult Blood, Stool, Guaiac Neg Reason For Referral No Information Medications Medication SIG (Take, Route, Frequency, Duration) Notes Start Date End Date Status amLODIPine Besylate 10 MG take 1 tablet by mouth every day Orally Once a day for 90 days Active Lisinopril 10 MG 1 tablet Orally Once a day for 30 day(s) Not-Taking Valsartan-hydroCHLOROthia zide 320-12.5 MG 1 tablet Orally Once a day for 90 days Active Fluticasone Propionate 50 MCG/ACT 1 spray in each nostril Nasally Once a day for 30 day(s) 09/29/2019 Not-Taking Citalopram Hydrobromide 20 MG take 1 tablet by mouth every day Orally Once a day for 90 days Active Indomethacin 50 MG 1 capsule with food or milk Orally Three times a day for 10 days 11/07/2020 Active Pantoprazole Sodium 40 MG TAKE 1 TABLET BY MOUTH EVERY DAY FOR 30 DAYS for 90 Active Immunizations Vaccine Route Administration Date Status Comme nts Fluarix Quadrivalent Unknown 12/26/2018 Refused Fluarix Quadrivalent Unknown 07/03/2019 Refused Covid Vaccine Unknown 12/13/2020 Refused Fluarix Quadrivalent - 150 Unknown 04/27/2024 Refused Social History Tobacco Use: Social History Observation [...] Problem Status W/U Status Risk Notes Problem Lymphocytosis (48792417) Lymphocytosis (D72.820) Active confirmed Problem 66089715 Anxiety (F41.9) Active confirmed Problem 39348203 Essential hypertension (I10) Active confirmed Problem 5936019259122212 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 confirmed Problem Hypertriglyceridemia (030792182) Hypertriglyceridemia (E78.1) Active confirmed Problem Posttraumatic stress disorder (61027245) PTSD (post-traumatic stress disorder) (F43.10) Active confirmed Problem 356521184 BMI 31.0-31.9,ad ult (Z68.31) Active confirmed Problem 597331983 Gastroesophageal reflux disease with esophagitis without hemorrhage (K21.00) Active confirmed Problem 22544811 Stricture esopha demi (K22.2) Active confirmed Problem 31751053 Achalasia, esoph ageal (K22.0) Active confirmed Vital Signs Blood pressure diastolic 100 mm Hg 05/05/2024 Height 69 in 05/05/2024 Blood pressure systolic 120 mm Hg 05/05/2024 Weight 205 lbs 05/05/2024 BMI 30.27 kg/m2 05/05/2024 Encounters Encounter Location Date Provider Diagnosis Jimmy Toure MD [address] [place] [address] Drive [address] [place] [phone] 04/27/2024 Jimmy Toure Blood tests for rout ine general physical examination Z00.00 ; Essential hypertension I10 ; Lymphocytosis D72.820 ; Hypertriglyceridemia E78.1 and PTSD (post-traumatic stress disorder) F43.10 Jimmy Toure MD [address] [place] [address] Drive [address] [place] [phone] 10/02/2024 Jimmy Toure Elevated LFTs R79.89 Jimmy Toure MD [address] [place] [address] [address] [place] [id number] 05/05/2024 Jimmy Toure Essential hypertensi on I10 ; Annual physical exam Z00.00 ; Anxiety F41.9 ; PTSD (post-traumatic stress disorder) F43.10 ; Achalasia, esophageal K22.0 ; History of gout Z87.39 ; Elevated LFTs R79.89 ; Colon cancer screening Z12.11 and Depression screening Z13.31 Assessments Encounter Date Diagnosis (ICD Code) Assessment Notes Treatment Notes Treatment Clinical Notes Section Notes 04/27/20[address] ine general physical examination (ICD-10 - Z00.00) 04/27/2024 Essential hypertensi on (ICD-10 - I10) 10/02/2024 Elevated LFTs (ICD-1 0 - R79.89) 05/05/2024 Essential hypertensi on (ICD-10 - I10) need testerone level. bp sitll a little high but doesn't take medicines, testosterone is pending with [facility] 05/05/2024 Annual physical exam (ICD-10 - Z00.00) labs reviewed and discussed with patient 04/27/2024 Lymphocytosis (ICD-1 0 - D72.820) 05/05/2024 Anxiety (ICD-10 - F41.9) stable 04/27/2024 Hypertriglyceridemia (ICD-10 - E78.1) 05/05/2024 PTSD (post-traumatic stress disorder) (ICD-10 - F43.10) seeing a counciller 04/27/2024 PTSD (post-traumatic stress disorder) (ICD-10 - F43.10) 05/05/2024 Achalasia, esophagea l (ICD-10 - K22.0) seeing a psych in [place] 05/05/2024 History of gout (ICD -10 - Z87.39) 05/05/2024 Elevated LFTs (ICD-1 0 - R79.89) says he is drinking too much. will recheck in six months 05/05/2024 Colon cancer screeni ng (ICD-10 - Z12.11) guaiac negative 05/05/2024 Depression screening (ICD-10 - Z13.31) negative screen Plan Of Treatment Pending Test Test Name Order Date XR GI SERIES 04/06/2023 Liver Panel 10/02/2024 Cortisol 04/27/2024 Next Appt Details Provider Name:Jimmy Mtz ier, 2025 07:45:00 AM, [address] [place] [address], [address], [phone], Provider Name:Jimmy Mtz ier, 05/08/2025 01:00:00 PM, [address] [place] [address], Suite [facility], [place], [place], [phone], Insurance Providers Payer Name Payer Address Payer Phone Subscriber Number Group Number Insured Name Patient Relationship to Insured Coverage Start Date Coverage End Date [employer] [facility] [address] [place], [place] [id number] [phone] [id number] 2 ALINE NORWOOD Self - patient is the insured Medical (General) History Medical History History ICD Code Lymphocytosis Lymphocytosis D72.820 08/04/23 colonoscopy pending path
--- OUTSIDE RECORDS SUMMARY | 2024-10-02 11:37 | XMS_ITS ---
Author Organization [facility] Address [address] [place] [phone] Care Team Providers Care Electric Motor Repairman Name Role Phone Tejal SCHERER, Jimmy Primary Care Provider Tanmay Adkins Jr REASON FOR VISIT pathology Encounters Encounter Location Date Provider Diagnosis [facility] [address] [place] [phone] 08/19/2023 Tanmay Goodman Jr Achalasia K22.0 Assessments Encounter Date Diagnosis (ICD Code) Assessment Notes Treatment Notes Treatment Clinical Notes Section Notes 08/19/2023 Achalasia (ICD-10 - K22.0) Esophageal motility testing for diagnosis of achalasia. Plan Of Treatment Treatment Notes Assessment Notes Achalasia Esophageal motility testing for diagnosis of achalasia. Progress Notes * ALINE NORWOOD DDOB:1985 ( 38 yo M)Acc No.[id number]:08/19/2023 Patient:?ALINE NORWOOD :1985???Age:38 Y???Sex:Male Address:[address] [place] [address], [phone] Subjective: * Chief Complaints: * ???Pathology * Medical History:? * Surgical History:? * Hospitalization/Major Diagno stic Procedure:? * Medications:? Objective: Assessment: * Assessment: 1.?Achalasia - K22.0 (Primar y)? Plan: * Treatment: * Procedure Codes:? * true * Date:? Generated for Palmira peres/Willian/Tamikoitting on:?10/02/2024 11:36 AM EDT
--- OUTSIDE RECORDS SUMMARY | 2024-10-02 11:37 | XMS_ITS | Clinical Summary ---
Author Organization [facility] Address [address] [place] [address] Care Team Providers Care Biomedical Electronics Technician Name Role Phone Jimmy Toure MD Primary Care Provider [phone] Allergies No known active allergies Medications Medication Sig Dispensed Refills Start Date End Date Status amLODIPine (NORVASC) 10 MG tablet Take 1 tablet (10 mg total) by mouth. 09/10/2023 Active citalopram (CeleXA) 20 MG tablet Take 1 tablet (20 mg total) by mouth daily. 12/11/2023 Active VALSARTAN PO Take by mouth. 09/10/2023 Active [place] 3 1000 MG Cap capsule Take 1,000 mg by mouth daily. Administer whole. Do not break. Active Active Problems No known active problems Social History Tobacco Use Types Packs/Day Years Used Date Smoking Tobacco: Never Smokeless Tobacco: Never Tobacco Cessation:Counseling Given: Not Answered Alcohol Use Standard Drinks/Week Comments Yes 2 (1 standard drink = 0.6 oz pur e alcohol) Sex and Gender Information Value Date Recorded Sex Assigned at Male 12/29/2023 11:32 AM EDT Gender Identity Male 12/29/2023 11:32 AM EDT Sexual Orientation Heterosexual (straight) 12/28 11:32 AM EDT Last Filed Vital Signs Vital Sign Reading Time Taken Comments Blood Pressure 118/90 03/29/2024 10:50 AM EDT Pulse 81 03/29/2024 10:50 AM EDT Temperature 36.3 ??C (97.4 ??F) 03/29/2024 10:20 AM E DT Respiratory Rate 14 03/29/2024 10:50 AM EDT Oxygen Saturation 94% 03/29/2024 10:50 AM EDT Inhaled Oxygen Concentration - - Weight 89.8 kg (198 lb) 03/29/2024 8:49 AM EDT Height 175.3 cm (5' 9 ) 03/29/2024 8:49 AM EDT Body Mass Index 29.24 03/29/2024 8:49 AM EDT Plan of Treatment Health Maintenance Due Date Last Done Comments Hepatitis C Virus Screening 1985 DTaP/Tdap/Td Vaccines (1 - Tdap) 2002 Hepatitis B Vaccines (1 of 3 - 19+ 3-dose series) 2002 Influenza Vaccine 02/24/2024 COVID-19 Vaccine ( - 2023-2 5 season) 2024 HIV Screening Completed 03/26/2022 HPV Vaccines Aged Out No longer eligi ble based on patient's age to complete this topic Pneumococcal Vaccine: Pediat eliezer (0-5 Years) and At-Risk Patients (6 to 49 Years) Aged Out No longer eligible b ased on patient's age to complete this topic Care Teams Biomedical Electronics Technician Relationship Specialty Start Date End Date Jimmy Toure MD [address] [place] [address] Dr Elayne [place] [phone] PCP - General Internal Medicine 12/28/23
--- OUTSIDE RECORDS SUMMARY | 2024-10-02 11:37 | XMS_ITS ---
Author Organization Jimmy Toure MD Address [address] [place] [phone] Care Team Providers Care Pest Control Pilot Name Role Phone Jimmy Toure Primary Care Provider Allergies No Known Allergies REASON FOR VISIT 3 MO F/U Encounters Encounter Location Date Provider Diagnosis Jimmy Toure MD [address] [facility] [address] [place] [phone] 08/15/2024 Jimmy Toure Plan Of Treatment Next Appt Details Provider Name:Jimmy lindsey, 2025 07:45:00 AM, [address] [facility], Suite [facility], [place], [place], [phone], Provider Name:Jimmy lindsey, 05/08/2025 01:00:00 PM, [address] [place] [address], Suite [facility], [place], [place], [phone], Progress Notes * ALINE NORWOODDOB:1985 (39 yo M)Acc No.[id number]:08/15/2024 Progress Notes Patient:?ALINE NORWOOD Provider:?Jimmy Toure MD :1985???Age:39 Y???Sex:Male Destin e:08/15/2024 Address: [facility] [id number] Subjective: * Chief Complaints: * ???1. 3 MO F/U. * ROS:?General/Constitutional:?Denies?Chills.?Denies?Fatigue.?Denies?Fever.?Denies?Headache.?ENT:?Denies?Sore throat.?Respiratory:?Denies?Cough.?Denies?Shortness of breath at rest.?Denies?Shortness of breath with exertion.?Gastrointestinal:?Denies?Diarrhea.?Denies?Nausea.? * Medical History:?Lymphocytos is, Lymphocytosis, 08/04/23 colonoscopy pending path. * Allergies:?N.K.D.A. Objective: * Vitals:? Assessment: Plan: * Treatment: * * The named appointment provid er may or may not be the originator of this progress note, and it is not deemed complete until electronically signed by the appointment provider. Sign off status: Pending * Provider:?Jimmy Toure MD Date:?0 08/15/2024 Generated for Palmira peres/Willian/Tamikoitting on:?10/02/2024 11:37 AM EDT
[2024-10-02 11:49] LABS: Alanine Aminotransferase 80 U/L (0-40); Albumin Level 4.5 g/dL (3.5-5.0); Alkaline Phosphatase 58 U/L (39-117); Aspartate Amino Transferase 62 U/L (5-37); Bilirubin Direct 0.4 mg/dL (0.0-0.5); Total Protein 8.2 g/dL (6.5-8.0)
== END 2024-10-02 10:20 | disposition home or self-care (01) ==
LOC: HO.LNP 10:19
PROVIDERS: Visit Provider Internal Medicine
DX: R79.89 Other specified abnormal findings of blood chemistry (principal)
CPT/HCPCS: 80076

== ENCOUNTER 2025-04-30 10:24 | Outpatient (REF) | payer BC, SELFPAY ==
--- OUTSIDE RECORDS SUMMARY | 2023-12-02 10:15 | XMS_ITS ---
Author Organization [facility] Address [address] [place] [address] [place] [id number] Care Team Providers Care Cold Strip Feeder Name Role Phone Tejal SCHERER, Jimmy Primary Care Provider Tanmay Adkins Jr [phone] REASON FOR VISIT Patient presents today for throwing up, uncomfortable. Encounters Encounter Location Date Provider Diagnosis [facility] [address] [id number] 12/02/2023 Tanmay Goodman Jr Plan Of Treatment No Information Progress Notes * ALINE NORWOOD DDOB:1985 ( 39 yo M)Acc No.[id number]:12/02/2023 Progress Notes Patient: ALINE OSBORNE Provider: Mathew Goodman MD :1985 A ge:38 Y S ex:Male Date:12/02/2023 Address:[address] [place], [place] [id number] Pcp:Jimmy Toure MD Subjective: * Chief Complaints: * 1 . Patient presents today for throwing up, uncomfortable.. * Medical History: Objective: * Vitals: Assessment: Plan: * Treatment: * * The named appointment provid er may or may not be the originator of this progress note, and it is not deemed complete until electronically signed by the appointment provider. Sign off status: Pending * Provider: Mathew Goodman MD Date: 0 12/02/2023 Generated for Printi ng/Faxing/eTransmitting on: 1 12:12 PM EDT
--- OUTSIDE RECORDS SUMMARY | 2024-05-05 09:00 | XMS_ITS ---
Author Organization Jimmy Toure MD Address [address] [place] [phone] Care Team Providers Care Tobacco Farmworker Name Role Phone Jimmy Toure Primary Care Provider [phone] Allergies No Known Allergies Results Component Value Reference Range Notes Occult Blood, Stool, Guaiac Reviewed date:05/05/2024 02:02:19 PM Interpretation:Negative Performing Lab: Notes/Report: Negative Occult Blood, Stool, Guaiac Neg REASON FOR VISIT annual visit/ must see back LFT's, had upper endoscopy with dilitation at [facility] [place] Medications Medication SIG (Take, Route, Frequency, Duration) Notes Start Date End Date Status amLODIPine Besylate 10 MG take 1 tablet by mouth every day Orally Once a day for 90 days Active Lisinopril 10 MG 1 tablet Orally Once a day for 30 day(s) Not-Taking Citalopram Hydrobromide 20 MG take 1 tablet by mouth every day Orally Once a day for 90 days Active Indomethacin 50 MG 1 capsule with food or milk Orally Three times a day for 10 days 11/07/2020 Active Pantoprazole Sodium 40 MG TAKE 1 TABLET BY MOUTH EVERY DAY FOR 30 DAYS for 90 Active Valsartan-hydroCHLOROthia zide 320-12.5 MG 1 tablet Orally Once a day for 90 days Active Fluticasone Propionate 50 MCG/ACT 1 spray in each nostril Nasally Once a day for 30 day(s) 09/29/2019 Not-Taking Social History Tobacco Use: Social History Observation Description Date Details (start date - stop date) Never Smoker NA - NA Tobacco Use/Smoking Question Answer Notes Patient is a nonsmoker Additional Findings: Tobacco Non-User Cu rrent non-smoker, currently using no form of tobacco Alcohol Screen Question Answer Notes Did you have a drink contain ing alcohol in the past year? Yes How often did you have a dri nk containing alcohol in the past year? 2 to 4 times a month (2 points) How many drinks did you have on a typical day when you were drinking in the past year? 1 or 2 drinks (0 point) How often did you have 6 or more drinks on one occasion in the past year? Never (0 point) Points 2 Interpretation Negative Problems Problem Type SNOMED Code ICD Code Onset Dates Problem Status W/U Status Risk Notes Problem [id number] Achalasia, esophageal (K22.0) Active confirmed Vital Signs Blood pressure systolic 120 mm Hg 05/05/20 24 Blood pressure diastolic 100 mm Hg 024 Height 69 in 05/05/2024 Weight 205 lbs 05/05/2024 BMI 30.27 kg/m2 05/05/2024 Encounters Encounter Location Date Provider Diagnosis Jimmy Toure MD [address] [place] [address] [place] [phone] 05/05/2024 Jimmy Toure Essential hypertension I10 ; Annual physical exam Z00.00 ; Anxiety F41.9 ; PTSD (post-traumatic stress disorder) F43.10 ; Achalasia, esophageal K22.0 ; History of gout Z87.39 ; Elevated LFTs R79.89 ; Colon cancer screening Z12.11 and Depression screening Z13.31 Assessments Encounter Date Diagnosis (ICD Code) Assessment Notes Treatment Notes Treatment Clinical Notes Section Notes 05/05/2024 Essential hypertension (ICD-10 - I10) need testerone level. bp sitll a little high but doesn't take medicines, testosterone is pending with [facility] 05/05/2024 Annual physical exam (ICD-10 - Z00.00) labs reviewed and discussed with patient 05/05/2024 Anxiety (ICD-10 - F41.9) stable 05/05/2024 PTSD (post-traumatic stress disorder) (ICD-10 - F43.10) seeing a counciller 05/05/2024 Achalasia, esophageal (ICD-10 - K22.0) seeing a psych in [place] 05/05/2024 History of gout (ICD-10 - Z87.39) 05/05/2024 Elevated LFTs (ICD-10 - R79.89) says he is drinking too much. will recheck in six months 05/05/2024 Colon cancer screening (ICD-10 - Z12.11) guaiac negative 05/05/2024 Depression screening (ICD-10 - Z13.31) negative screen Plan Of Treatment Medication Medication Name Sig Start Date Stop Date Notes amLODIPine Besylate 10 MG take 1 tablet by mouth every day Orally Once a day for 90 days Citalopram Hydrobromide 20 MG take 1 tab let by mouth every day Orally Once a day for 90 days Indomethacin 50 MG 1 capsule with food or milk Orally Three times a day for 10 days 11/07/2020 Valsartan-hydroCHLOROthiazid e 320-12.5 MG 1 tablet Orally Once a day for 90 days Treatment Notes Assessment Notes Essential hypertension need testerone [place]. bp sitll a little high but doesn't take medicines, testosterone is pending with [facility] Annual physical exam labs reviewed and d iscussed with patient Anxiety stable PTSD (post-traumatic stress disorder) se jesse a counciller Achalasia, esophageal seeing a psych in [place] Elevated LFTs says he is drinking too much. will recheck in six months Colon cancer screening guaiac negative Depression screening negative screen Next Appt Details Follow Up: 3 Months, Reason: Provider Name:Jimmy Mtz ier, 05/31/2025 01:45:00 PM, [address] [place] [address], [address], [place], [place], [phone], Progress Notes * ALINE NORWOODDOB:1985 (39 yo M)Acc No.[id number]:05/05/2024 Progress Notes Patient: Kwaku VENICEALINE Provider: Micki Toure MD :1985 A ge:39 Y S ex:Male Date:05/05/2024 Address: [facility] [id number] Subjective: * Chief Complaints: * a nnual visit/ must see back LFT'shad upper endoscopy with dilitation at [facility] in [place] * HPI: D epression Screening: PHQ-9 L ittle interest or pleasure in doing things N ot at all, F eeling down, depressed, or hopeless N ot at all, T rouble falling or staying asleep, or sleeping too much N ot at all, F eeling tired or having little energy N ot at all, P oor appetite or overeating N ot at all, F eeling bad about yourself or that you are a failure, or have let yourself or your family down N ot at all, T rouble concentrating on things, such as reading the newspaper or watching television N ot at all, M oving or speaking so slowly that other people could have noticed; or the opposite, being so fidgety or restless that you have been moving around a lot more than usual N ot at all, T houghts that you would be better off or of hurting yourself in some way N ot at all, T otal Score 0 . I nterpretation and Intervention D epression Screening Findings N egative, F ollow-Up for Depression : review of PHQ-9 found negative result, no follow-up needed. S ymptom(s): patient is a 39 yo male here or annual visit with review of recent labs and follow up of chronic isues, last endoscopy worked. had lost 25 lbs. * ROS: G eneral/Constitutional: Patient denies c hills, fatigue, fever, headache. C hange in appetite d enies. C hills d enies. F ever d enies. O phthalmologic: Blurred vision d enies. D ischarge d enies. P ain d enies. E NT: Patient denies d ecreased sense of smell, any loss of taste, sore throat. D ecreased hearing d enies. S ore throat d enies. S wollen glands?denies. E ndocrine: Cold intolerance d enies. E xcessive thirst d enies. H eat intolerance d enies. W eight loss d enies. R espiratory: Cough d enies. S hortness of breath at rest d enies. S hortness of breath with exertion d enies. W heezing d enies. C ardiovascular: Chest pain at rest d enies. C hest pain with exertion?denies. I rregular heartbeat d enies. S hortness of breath d enies. ? G astrointestinal: Abdominal pain d enies. C hange in bowel habits d enies. D iarrhea d enies. N ausea d enies. R ectal bleeding d enies. V omiting d enies . G enitourinary: Blood in urine d enies. D ifficulty urinating d enies. F requent urination d enies. M usculoskeletal: Patient denies m uscle aches. P ainful joints d enies. W eakness d enies. P eripheral Vascular: Patient denies r ed and blue toes. S kin: Dry skin d enies. I tching d enies. D enies?Mole(s), changes in moles, new moles or any lesions of concern. D enies P hotosensitivity. R cory d enies. N eurologic: Dizziness d enies. F ainting d enies. H eadache?denies. * Medical History: * Surgical History: * Hospitalization/Major Diagno stic Procedure: * Family History: F ather: 38 yrs. M other: alive 63 yrs. 1 sister(s) . . Father- Suicide mother- Healthy, Denies mental health/substance abuse family history, Denies mental health/substance abuse family history. * Social History: T obacco Use: T obacco Use/Smoking P atient is a n onsmoker, A dditional Findings: Tobacco Non-User C urrent non-smoker, currently using no form of tobacco. D rugs/Alcohol: A lcohol Screen D id you have a drink containing alcohol in the past year? Y es, H ow often did you have a drink containing alcohol in the past year? 2 to 4 times a month (2 points), H ow many drinks did you have on a typical day when you were drinking in the past year? 1 or 2 drinks (0 point), H ow often did you have 6 or more drinks on one occasion in the past year? N ever (0 point), P oints 2 , I nterpretation N egative. M iscellaneous: C affeine: yes, frequency: once a week. no Children. Exercise: yes, 1-2 times per week biking 20-30 miles a couple times a week. Home smoke detector use: yes. Housing: owning. Living with: alone. Marital status: single. Occupation: works part-time. Pets: dog x1. no Travel outside of the [place]. * Medications: T akingCitalopram Hydrobromide 20 MG Tablet TAKE 1 TABLET BY MOUTH EVERY DAY Valsartan-hydroCHLOROthiazide 320-12.5 MG Tablet 1 tablet Orally Once a dayamLODIPine Besylate 10 MG Tablet take 1 tablet by mouth every day Orally Once a dayPantoprazole Sodium 40 MG Tablet Delayed Release TAKE 1 TABLET BY MOUTH EVERY DAY FOR 30 DAYS Taking Citalopram Hydrobromide 20 MG Tablet TAKE 1 TABLET BY MOUTH EVERY DAY Taking Valsartan-hydroCHLOROthiazide 320-12.5 MG Tablet 1 tablet Orally Once a dayTaking amLODIPine Besylate 10 MG Tablet take 1 tablet by mouth every day Orally Once a dayTaking Pantoprazole Sodium 40 MG Tablet Delayed Release TAKE 1 TABLET BY MOUTH EVERY DAY FOR 30 DAYS Not-Taking/PRNIndomethacin 50 MG Capsule 1 capsule with food or milk Orally Three times a dayFluticasone Propionate 50 MCG/ACT Suspension 1 spray in each nostril Nasally Once a dayLisinopril 10 MG Tablet 1 tablet Orally Once a dayMedication List reviewed and reconciled with the patientNot-Taking/PRN Indomethacin 50 MG Capsule 1 capsule with food or milk Orally Three times a dayNot-Taking/PRN Fluticasone Propionate 50 MCG/ACT Suspension 1 spray in each nostril Nasally Once a dayNot-Taking/PRN Lisinopril 10 MG Tablet 1 tablet Orally Once a dayMedication List reviewed and reconciled with the patient * Allergies: N .K.D.A.yes[Allergies Verified] Objective: * Vitals: H t: 69, Wt:205, BMI:30.27, BP:120/100. * P ast Orders: L ab:Lipid Panel (Order Date - 04/27/2024) (Collection Date - 04/27/2024) Value Reference Range Triglycerides 156 H <150 - mg/dL Cholesterol 220 H <200 - mg/dL LDL Cholesterol Calculated 122 H <100 - mg/dL HDL Cholesterol 67 >40 - mg/dL L ab:Complete Blood Count Auto Diff (Order Date - 04/27/2024) (Collection Date - 04/27/2024) Value Reference Range White Blood Count 7.9 4.8-10.8 - X10*3/uL Red Blood Count 4.88 4.60-5.80 - X10*6/uL Hemoglobin 16.1 14.0-18.0 - g/dl Hematocrit 45.6 42.0-52.0 - % Mean Corpuscular Volume 93.4 80.0-98.0 - fL Mean Corpuscular Hemoglobin 33.0 27.0-33.0 - pg Mean Corpuscular HGB Conc 35.3 31.0-36.0 - g/ dl Red Cell Distribution Width 12.2 11.0-16.0 - % Platelet Count 268 160-400 - X10*3/uL Mean Platelet Volume 10.3 9.4-12.4 - fL Neutrophils Percent Auto 50.9 45-73 - % Imm Gran Pct Auto 0.4 0.0-0.4 - % Lymphocytes Percent Auto 36.5 20-40 - % Monocytes Percent Auto 8.1 2-11 - % Eosinophils Percent Auto 2.8 0-4 - % Basophils Percent Auto 1.3 0-2 - % NRBC Pct Auto 0.0 0.0-0.2 - /100WBC Neutrophils Absolute Auto 4.0 2.0-8.3 - x10* 3/uL Imm Gran Abs Auto 0.03 0.00-0.03 - X10*3/uL Lymphocytes Absolute Auto 2.9 1.2-4.9 - X10* 3/uL Monocytes Absolute Auto 0.6 0.1-1.2 - X10*3/ uL Eosinophils Absolute Auto 0.2 0.0-0.4 - X10* 3/uL Basophils Absolute Auto 0.1 0.0-0.2 - X10*3/ uL NRBC Abs Auto 0.000 0.0-0.012 - X10*3/uL L ab:Cortisol Random (Order Date - 04/27/2024) (Collection Date - 04/27/2024) Value Reference Range Cortisol Random 18.6 - ug/dL L ab:UA ClnCatch+Micro w/rflx Cult (Order Date - 04/27/2024) (Collection Date - 04/27/2024) Value Reference Range Color Urine Straw - Appearance Urine Clear - PH 7.5 5.0-9.0 - Glucose Urine UA Negative Negative - mg/dL Urine Blood Negative Negative - Specific [place] - Urine 1.015 1.005-1.025 - Urine Protein Negative Neg-Trace - mg/dL Urine Ketones Negative Negative - mg/dL Nitrite Urine Negative Negative - Leukocyte Esterase Urine Negative Negative - RBC Urine 0-2 0-2 - /HPF WBC Urine 0-5 0-5 - /HPF Squamous Epithelial Cell Urine 0-2 0-2 - /HP F Bacteria Urine None Seen None Seen - Hyaline Casts Urine 0-2 0-2 - /LPF L ab:TSH reflex Free T4 (Order Date - 04/27/2024) (Collection Date - 04/27/2024) Value Reference Range TSH reflex Free T4 3.11 0.32-4.0 - uIU/mL L ab:PSA,Total (Free>4and<10) (Order Date - 04/27/2024) (Collection Date - 04/27/2024) Value Reference Range PSA,Total (Free>4and<10) 0.66 0.00-4.00 - ng/ mL * Examination: G eneral Examination: GENERAL APPEARANCE: w ell developed, well nourished, in no acute distress. HEAD: n ormocephalic, atraumatic. EYES: p upils equal, round, reactive to light and accommodation, sclera non-icteric. EARS: n ormal. ORAL CAVITY: m ucosa moist. THROAT: c lear. NECK/THYROID: n inna supple, full range of motion, no cervical lymphadenopathy, no bruits. SKIN: w arm and dry, no suspicious lesions. HEART: r egular rate and rhythm, S1, S2 normal, no murmurs.? LUNGS: c lear to auscultation bilaterally. ABDOMEN: s oft, nontender, nondistended, bowel sounds present, normal, no organomegaly , no masses palpable. RECTAL EXAM: n ormal tone, no external hemorrhoids, no masses palpable, prostate normal, stool guaiac negative. MALE GENITOURINARY: c ircumcised, no testicular mass, testes descended bilaterally. EXTREMITIES: n o clubbing, cyanosis, or edema. NEUROLOGIC: n onfocal, motor strength normal upper and lower extremities, sensory exam intact. Assessment: * Assessment: 1. A nnual physical exam - Z00.00 (Primary) 2 . E ssential hypertension - I10 3 .?Anxiety - F41.9 4 . P TSD (post-traumatic stress disorder) - F43.10 5 . A chalasia, esophageal - K22.0 6 . H istory of gout - Z87.39 7 . E levated LFTs - R79.89 8. C olon cancer screening - Z12.11 9 . D epression screening - Z13.31 Plan: * Treatment: 2. E ssential hypertension Continue Valsartan-hydroCHLOROthiazide Tablet, 320-12.5 MG, 1 tablet, Orally, Once a day, 90 days, 90, Refills 4; C ontinue amLODIPine Besylate Tablet, 10 MG, take 1 tablet by mouth every day, Orally, Once a day, 90 days, 90, Refills 4. Notes: need testerone level. bp sitll a little high but doesn't take medicines, testosterone is pending with [facility] 3. A nxiety Continue Citalopram Hydrobromide Tablet, 20 MG, take 1 tablet by mouth every day, Orally, Once a day, 90 days, 90, Refills 3. Notes: stable 4. P TSD (post-traumatic stress disorder) Notes: seeing a counciller 5. A chalasia, esophageal Notes: seeing a psych in [place] 6. H istory of gout Continue Indomethacin Capsule, 50 MG, 1 capsule with food or milk, Orally, Three times a day, 10 days, 30 Capsule, Refills 2. 7. E levated LFTs Notes: says he is drinking too much. will recheck in six months 8. C olon cancer screening L AB: Occult Blood, Stool, Guaiac N egative Value Reference Range O ccult Blood, Stool, Guaiac Neg Notes: guaiac negative??9.?Depression screening? Notes: negative screen?? * Procedure Codes: 8 2270 TEST FOR BLOOD, FECES * Preventive Medicine: Counseling: C are goal follow-up plan: C ounseling for abnormal BMI provided?Yes, A olena Normal BMI Follow-up Micki bernal encouragement to exercise. * Follow Up: 3 Months * * Sign off status: Completed true * Provider: Micki Toure MD Date: Generated for Palmira peres/Willian/eTransmitting on: 12:11 PM EDT History and Physical Notes * HPI (History of Present Illness) Category Sub-Category Detail Notes Category Not es Symptom(s) patient is a 39 yo male here or annual visit with review of recent labs and follow up of chronic isues, last endoscopy worked. had lost 25 lbs Depression Screening PHQ-9 Little inte rest or pleasure in doing things: Not at all Feeling down, depressed, or hopeless: No t at all Trouble falling or staying asleep, or sl eeping too much: Not at all Feeling tired or having little energy: N ot at all Poor appetite or overeating: Not at all Feeling bad about yourself o r that you are a failure, or have let yourself or your family down: Not at all Trouble concentrating on thi ngs, such as reading the newspaper or watching television: Not at all Moving or speaking so slowly that other people could have noticed; or the opposite, being so fidgety or restless that you have been moving around a lot more than usual: Not at all Thoughts that you would be b oscar off or of hurting yourself in some way: Not at all Total Score: 0 Interpretation and Intervention Depression Shireen jara Findings: Negative Follow-Up for Depression: : review of PH Q-9 found negative result, no follow-up needed Examination Category Sub-Category Detail Notes Category Not es General Examination GENERAL APPEARANCE: well dev eloped, well nourished, in no acute distress HEAD: normocephalic, atrau matic EYES: pupils equal, round, reactive to light and accommodation, sclera non-icteric EARS: normal THROAT: clear NECK/THYROID: neck supple, full ra nge of motion, no cervical lymphadenopathy, no bruits HEART: regular rate and rhy thm, S1, S2 normal, no murmurs LUNGS: clear to auscultatio n bilaterally ABDOMEN: soft, nontender, non distended, bowel sounds present, normal, no organomegaly , no masses palpable NEUROLOGIC: nonfocal, motor stre ngth normal upper and lower extremities, sensory exam intact SKIN: warm and dry, no michelle picious lesions EXTREMITIES: no clubbing, cyanosi s, or edema MALE GENITOURINARY: circumcised, no test icular mass, testes descended bilaterally RECTAL EXAM: normal tone, no exte rnal hemorrhoids, no masses palpable, prostate normal, stool guaiac negative ORAL CAVITY: mucosa moist
--- OUTSIDE RECORDS SUMMARY | 2024-08-15 12:00 | XMS_ITS ---
Author Organization Jimmy Toure MD Address [address] [place] [phone] Care Team Providers Care Category Director Name Role Phone Jimmy Toure Primary Care Provider Allergies No Known Allergies REASON FOR VISIT 3 MO F/U Encounters Encounter Location Date Provider Diagnosis Jimmy Toure MD [address] [facility] [address] [place] [phone] 08/15/2024 Jimmy Toure Plan Of Treatment Next Appt Details Provider Name:Jimmy Mtz ier, 05/31/2025 01:45:00 PM, [address] [facility] [address], [address], [place], [place], [phone], Progress Notes * ALINE NORWOODDOB:1985 (39 yo M)Acc No.[id number]:08/15/2024 Progress Notes Patient: ALINE OSBORNE Provider: Micki Toure MD :1985 A ge:39 Y S ex:Male Date:08/15/2024 Address:[address] [place] [address] [id number] Subjective: * Chief Complaints: * 1 . 3 MO F/U. * ROS: G eneral/Constitutional: Denies C hills. D enies F atigue. D enies F ever. D enies H eadache. E NT: Denies S ore throat. R espiratory: Denies C ough. D enies S hortness of breath at rest. D enies S hortness of breath with exertion. G astrointestinal: Denies D iarrhea. D enever araiza. * Medical History: L ymphocytosis, Lymphocytosis, 08/04/23 colonoscopy [address] path. * Allergies: N .K.D.A. Objective: * Vitals: Assessment: Plan: * Treatment: * * The named appointment provid er may or may not be the originator of this progress note, and it is not deemed complete until electronically signed by the appointment provider. Sign off status: Pending * Provider: Micki Toure MD Date: 0 08/15/2024 Generated for Palmira peres/Willian/Tamikoitting on: 1 12:12 PM EDT
--- OUTSIDE RECORDS SUMMARY | 2024-10-02 03:30 | XMS_ITS ---
Author Organization Jimmy Toure MD Address [address] [place] [phone] Care Team Providers Care Salary And Wage Administrator Name Role Phone Jimmy Toure Primary Care Provider Results Component Value Reference Range Notes Liver Panel Reviewed date:10/12/2024 12:30:41 PM Interpretation:CBACK 10/12/24 Performing Lab:[facility], [address] [place] [phone] Notes/Report: Bilirubin Total 1.0 0.0-1.0 mg/dL Bilirubin Direct 0.4 0.0-0.5 mg/dL Aspartate Amino Transferase 62 5-37 U/L Alanine Aminotransferase 80 0-40 U/L Total Protein 8.2 6.5-8.0 g/dL Albumin Level 4.5 3.5-5.0 g/dL Alkaline Phosphatase 58 39-117 U/L REASON FOR VISIT CBACK LFT Encounters Encounter Location Date Provider Diagnosis Jimmy Toure MD [address] [place] [phone] 10/02/2024 Jimmy Tuore Elevated LFTs R79.89 Assessments Encounter Date Diagnosis (ICD Code) Assessment Notes Treatment Notes Treatment Clinical Notes Section Notes 10/02/2024 Elevated LFTs (ICD-10 - R79.89) Plan Of Treatment Next Appt Details Provider Name:Jimmy lindsey, 05/31/2025 01:45:00 PM, [address], Suite [facility], [place], [place], [phone], Progress Notes * ALINE NORWOODDOB:1985 (39 yo M)Acc No.[id number]:10/02/2024 Progress Note Patient: ALINE OSBORNE Provider: Micki Toure MD :1985 A ge:39 Y S ex:Male Date:10/02/2024 Address:[address] [place] [address] [place], [phone] Subjective: * Chief Complaints: * 1 . CBACK LFT. * Medical History: Objective: * Vitals: Assessment: * Assessment: 1. E levated LFTs - R79.89 (Primary) Plan: * Treatment: * Procedure Codes: 3 6415 VENIPUNCT, ROUTINE* * * The named appointment provid er may or may not be the originator of this progress note, and it is not deemed complete until electronically signed by the appointment provider. Sign off status: Pending * Provider: Micki Toure MD Date: 0 10/02/2024 Generated for Palmira peres/Willian/Tamikoitting on: 1 12:11 PM EDT
--- OUTSIDE RECORDS SUMMARY | 2024-10-12 07:45 | XMS_ITS ---
Author Organization Jimmy Toure MD Address [address] [place], [place] [phone] Care Team Providers Care Cradle Slide Maker Name Role Phone Jimmy Toure Primary Care Provider Allergies No Known Allergies REASON FOR VISIT [facility], lab in patient docs Medications Medication SIG (Take, Route, Frequency, Duration) Notes Start Date End Date Status Citalopram Hydrobromide 20 MG take 1 tablet by mouth every day Orally Once a day for 90 days Active Fluticasone Propionate 50 MCG/ACT 1 spray in each nostril Nasally Once a day for 30 day(s) 09/29/2019 Not-Taking Lisinopril 10 MG 1 tablet Orally Once a day for 30 day(s) Not-Taking amLODIPine Besylate 10 MG take 1 tablet [...] Once a day for 90 days Active Vital Signs Blood pressure systolic 120 mm Hg 10/13/19 25 Blood pressure diastolic 82 mm Hg 025 Height 69 in 10/12/2024 Weight 215 lbs 10/12/2024 BMI 31.75 kg/m2 10/12/2024 weight is up 10 pounds since 05-05-24 Encounters Encounter Location Date Provider Diagnosis Jimmy Toure MD [address] [place], [place] [phone] 10/12/2024 Jimmy Toure Elevated LFTs R79.89 Assessments Encounter Date Diagnosis (ICD Code) Assessment Notes Treatment Notes Treatment Clinical Notes Section Notes 10/12/2024 Elevated LFTs (ICD-10 - R79.89) advised to hopefully can decrease alcohol/ will continue to monitor and recheck in april Plan Of Treatment Treatment Notes Assessment Notes Elevated LFTs advised to hopefully can decrease alcohol/ will continue to monitor and recheck in april Next Appt Details Provider Name:Jimmy Jaxson Mtz ier, 05/31/2025 01:45:00 PM, [address] [facility], [address], [place], [place], [phone], Progress Notes * ALINE NORWOODDOB:1985 (39 yo M)Acc No.[id number]:10/12/2024 Patient: ALINE OSBORNE Provider: Micki Toure MD :1985 A ge:39 Y S ex:Male Date:10/12/2024 Address: [facility] [id number] Subjective: * Chief Complaints: * C BACK LABSLab in patient docs * HPI: S ymptom(s): patient is a 39 yo male here for follow up visit with review of recent labs and follow up of chronic issues./ has still been over drinking and lft's are still not working. D epression Screening: PHQ-9 T houghts that you would be better off or of hurting yourself in some way N ot at all, T otal Score 0 . I nterpretation and Intervention D epression Screening Findings N egative, F ollow-Up for Depression : review of PHQ-9 found negative result, no follow-up needed. * ROS: G eneral/Constitutional: Denies C hills. D enies F atigue. D enies F ever. D enies H eadache. E NT: Patient denies d ecreased sense of smell, any loss of taste, sore throat. D enies S ore throat. R espiratory: Denies C ough. D enies S hortness of breath at rest. D enies S hortness of breath with exertion. G astrointestinal: Denies D iarrhea. D enies N ausea. M usculoskeletal: Patient denies m uscle aches. P eripheral Vascular: Patient denies r ed and blue toes. * Medical History: * Surgical History: * Hospitalization/Major Diagno stic Procedure: * Medications: T akingPantoprazole Sodium 40 MG Tablet Delayed Release TAKE 1 TABLET BY MOUTH EVERY DAY FOR 30 DAYS Valsartan-hydroCHLOROthiazide 320-12.5 MG Tablet 1 tablet Orally Once a day amLODIPine Besylate 10 MG Tablet take 1 tablet by mouth every day Orally Once a day Indomethacin 50 MG Capsule 1 capsule with food or milk Orally Three times a day Citalopram Hydrobromide 20 MG Tablet take 1 tablet by mouth every day Orally Once a day Taking Pantoprazole Sodium 40 MG Tablet Delayed Release TAKE 1 TABLET BY MOUTH EVERY DAY FOR 30 DAYS Taking Valsartan-hydroCHLOROthiazide 320-12.5 MG Tablet 1 tablet Orally Once a day Taking amLODIPine Besylate 10 MG Tablet take 1 tablet by mouth every day Orally Once a day Taking Indomethacin 50 MG Capsule 1 capsule with food or milk Orally Three times a day Taking Citalopram Hydrobromide 20 MG Tablet take 1 tablet by mouth every day Orally Once a day Not-Taking/PRNFluticasone Propionate 50 MCG/ACT Suspension 1 spray in each nostril Nasally Once a day Lisinopril 10 MG Tablet 1 tablet Orally Once a day Medication List reviewed and reconciled with the patientNot-Taking/PRN Fluticasone Propionate 50 MCG/ACT Suspension 1 spray in each nostril Nasally Once a day Not-Taking/PRN Lisinopril 10 MG Tablet 1 tablet Orally Once a day Medication List reviewed and reconciled with the patient * Allergies: N .K.D.A.yes[Allergies Verified] Objective: * Vitals: H t: 69, Wt: 215, BMI:31.75, BP:120/82, Wt-k.52. weight is up 10 pounds since 05-05-24. * Examination: G eneral Examination: GENERAL APPEARANCE: a lert, well hydrated, in no distress.? HEAD: n ormocephalic. SKIN: g ood turgor. HEART: r egular rate and rhythm, no murmurs, rubs, gallops.? LUNGS: n o wheezes, rales, rhonchi, good air movement, clear to auscultation bilaterally. ABDOMEN: f eels as though lever is down couple inches below ribs. Assessment: * Assessment: 1. E levated LFTs - R79.89 (Primary) Plan: * Treatment: * Procedure Codes: * * Sign off status: Completed true * Provider: Micki Toure MD Date: 0 10/12/2024 Generated for Palmira peres/Willian/eTransmitting on: 1 12:12 PM EDT History and Physical Notes * HPI (History of Present Illness) Category Sub-Category Detail Notes Category Not es Symptom(s) patient is a 39 yo male here for follow up visit with review of recent labs and follow up of chronic issues./ has still been over drinking and lft's are still not working. Depression Screening PHQ-9 Little inte rest or [...] Total Score: 0 Interpretation and Intervention Depression Scree estefani Findings: Negative Follow-Up for Depression: : review of PH Q-9 found negative result, no follow-up needed Examination Category Sub-Category Detail Notes Category Not es General Examination GENERAL APPEARANCE: alert, w ell hydrated, in no distress HEAD: normocephalic HEART: regular rate and rhy thm, no murmurs, rubs, gallops LUNGS: no wheezes, rales, r honchi, good air movement, clear to auscultation bilaterally ABDOMEN: feels as though leve r is down couple inches below ribs SKIN: good turgor
--- OUTSIDE RECORDS SUMMARY | 2025-04-30 03:45 | XMS_ITS ---
Author Organization Jimmy Toure MD Address [address] [place], [place] [id number] Care Team Providers Care Security Control Room Officer Name Role Phone Jimmy Toure Primary Care Provider [phone] Results Component Value Reference Range Notes Complete Blood Count Auto Di ff (Not yet reviewed by provider) Interpretation: Performing Lab:[facility], [address] [place] [phone] Notes/Report: White Blood Count 10.2 4.8-10.8 X10*3/uL Red Blood Count 5.06 4.60-5.80 X10*6/uL Hemoglobin 16.6 14.0-18.0 g/dl Hematocrit 47.1 42.0-52.0 % Mean Corpuscular Volume 93.1 80.0-98.0 fL Mean Corpuscular Hemoglobin 32.8 27.0-33.0 pg Mean Corpuscular HGB Conc 35.2 31.0-36.0 g/dl Red Cell Distribution Width 12.4 11.0-16.0 % Platelet Count 302 160-400 X10*3/uL Mean Platelet Volume 10.2 9.4-12.4 fL Neutrophils Percent Auto 61.8 45-73 % Imm Gran Pct Auto 0.5 0.0-0.4 % Lymphocytes Percent Auto 27.5 20-40 % Monocytes Percent Auto 7.8 2-11 % Eosinophils Percent Auto 1.9 0-4 % Basophils Percent Auto 0.5 0-2 % NRBC Pct Auto 0.0 0.0-0.2 /100WBC Neutrophils Absolute Auto 6.3 2.0-8.3 x10*3/u L Imm Gran Abs Auto 0.05 0.00-0.03 X10*3/uL Lymphocytes Absolute Auto 2.8 1.2-4.9 X10*3/u L Monocytes Absolute Auto 0.8 0.1-1.2 X10*3/uL Eosinophils Absolute Auto 0.2 0.0-0.4 X10*3/u L Basophils Absolute Auto 0.1 0.0-0.2 X10*3/uL NRBC Abs Auto 0.000 0.0-0.012 X10*3/uL Lipid Panel (Not yet reviewe d by provider) Interpretation: Performing Lab:[facility], [address] [place] [phone] Notes/Report: Triglycerides 263 <150 mg/dL Desirable Triglyceride: less than 150 mg/dL Borderline High Triglyceride 150-199 mg/dL High Triglyceride: 200-499 mg/dL Very High Triglyceride: greater than or equal to 5OO mg/dL Cholesterol 236 <200 mg/dL Desirable Cholesterol: less than 200 mg/dL Borderline High Cholesterol: 200-239 mg/dL High Cholesterol: greater than 239 mg/dL LDL Cholesterol Calculated 136 <100 mg/dL Desirable LDL: less than 100 mg/dL Near Optimal/Above Optimal LDL: 110-129 mg/dL Borderline High LDL: 130-159 mg/dL High LDL: 160-189 mg/dL Very High LDL: greater than or equal to 190 mg/dL HDL Cholesterol 48 >40 mg/dL Desirable HDL: greater than 40 mg/dL Note: This HDL assay may give artificially low results in patients with liver disease. PSA,Total (Free>4and<10) (No t yet reviewed by provider) Interpretation: Performing Lab:[facility], [address] [place] [phone] Notes/Report: PSA,Total (Free>4and<10) 0.64 0.00-4.00 ng/mL A Free PSA was not [...] Green Alinity i Chemiluminescent Microparticle Immunoassay (CMIA) UA ClnCatch+Micro w/rflx Cul t (Not yet reviewed by provider) Interpretation: Performing Lab:[facility], [address] [place] [phone] Notes/Report: Urine, Clean Catch Color Urine Yellow Appearance Urine Clear PH 7.0 5.0-9.0 Glucose Urine UA Negative Negative mg/dL Urine Blood Negative Negative Specific [place] - Urine 1.015 1.005-1.025 Urine Protein Negative Neg-Trace mg/dL Urine Ketones Negative Negative mg/dL Nitrite Urine Negative Negative Leukocyte Esterase Urine Negative Negative RBC Urine 0-2 0-2 /HPF WBC Urine 0-5 0-5 /HPF Squamous Epithelial Cell Urine 0-2 0-2 /HPF Bacteria Urine None Seen None Seen Hyaline Casts Urine 0-2 0-2 /LPF REASON FOR VISIT FASTING LABS Encounters Encounter Location Date Provider Diagnosis Jimmy Toure MD [address] [facility] [address] [place] [phone] 04/30/2025 Jimmy Toure Blood tests for rout ine general physical examination Z00.00 ; Essential hypertension I10 ; Lymphocytosis D72.820 and Hypertriglyceridemia E78.1 Assessments Encounter Date Diagnosis (ICD Code) Assessment Notes Treatment Notes Treatment Clinical Notes Section Notes 04/30/2025 Blood tests for rout ine general physical examination (ICD-10 - Z00.00) 04/30/2025 Essential hypertensi on (ICD-10 - I10) 04/30/2025 Lymphocytosis (ICD-1 0 - D72.820) 04/30/2025 Hypertriglyceridemia (ICD-10 - E78.1) Plan Of Treatment Pending Test Test Name Order Date Complete Blood Count Auto Diff Comprehensive [place]. Panel Fast Lipid Panel 04/30/2025 PSA,Total (Free>4and<10) 04/30/2025 UA ClnCatch+Micro w/rflx Cult 04/30/2025 Next Appt Details Provider Name:Jimmy lindsey, 05/31/2025 01:45:00 PM, [address] [facility], [address], [place], [place], [id number], Progress Notes * ALINE NORWOODDOB:1985 (39 yo M)Acc No.[id number]:04/30/2025 Progress Note Patient: ALINE OSBORNE Provider: Micki Toure MD :1985 A ge:39 Y S ex:Male Date:04/30/2025 Address:[address] [place] [address] Timothy BLOOM, [id number] Subjective: * Chief Complaints: * 1 . FASTING LABS. * Medical History: Objective: * Vitals: Assessment: * Assessment: 1. B lood tests for routine general physical examination - Z00.00 (Primary) 2 .?Essential hypertension - I10 3 . L ymphocytosis - D72.820 4 . H ypertriglyceridemia - E78.1 Plan: * Treatment: 2. E ssential hypertension L AB: Complete Blood Count Auto Diff (Collection Date & Time - 04/30/2025 07:45 AM) L AB: Comprehensive [place]. Panel Fast L AB: Lipid Panel (Collection Date & Time - 04/30/2025 07:45 AM) L AB: PSA,Total (Free>4and<10) (Collection Date & Time - 04/30/2025 07:45 AM) L AB: UA ClnCatch+Micro w/rflx Cult (Collection Date & Time - 04/30/2025 07:45 AM) 3. L ymphocytosis L AB: Complete Blood Count Auto Diff (Collection Date & Time - 04/30/2025 07:45 AM) L AB: Comprehensive [place]. Panel Fast L AB: Lipid Panel (Collection Date & Time - 04/30/2025 07:45 AM) L AB: PSA,Total (Free>4and<10) (Collection Date & Time - 04/30/2025 07:45 AM) L AB: UA ClnCatch+Micro w/rflx Cult (Collection Date & Time - 04/30/2025 07:45 AM) 4. H ypertriglyceridemia L AB: Complete Blood Count Auto Diff (Collection Date & Time - 04/30/2025 07:45 AM) L AB: Comprehensive [place]. Panel Fast L AB: Lipid Panel (Collection Date & Time - 04/30/2025 07:45 AM) L AB: PSA,Total (Free>4and<10) (Collection Date & Time - 04/30/2025 07:45 AM) L AB: UA ClnCatch+Micro w/rflx Cult (Collection Date & Time - 04/30/2025 07:45 AM) * Procedure Codes: 3 6415 VENIPUNCT, ROUTINE* * * The named appointment provid er may or may not be the originator of this progress note, and it is not deemed complete until electronically signed by the appointment provider. Sign off status: Pending * Provider: Micki Toure MD Date: 1 Generated for Palmira peres/Willian/Tamikoitting on: 12:12 PM EDT
[2025-04-30 10:27] LABS: MANUAL DIFF FLAG NO
[2025-04-30 11:15] LABS: Hematocrit 47.1 % (42.0-52.0); Hemoglobin 16.6 g/dl (14.0-18.0); Imm Gran Abs Auto 0.05 X10*3/uL (0.00-0.03); Imm Gran Pct Auto 0.5 % (0.0-0.4); Lymphocytes Absolute Auto 2.8 X10*3/uL (1.2-4.9); Mean Corpuscular HGB Conc 35.2 g/dl (31.0-36.0); Mean Corpuscular Hemoglobin 32.8 pg (27.0-33.0); Mean Corpuscular Volume 93.1 fL (80.0-98.0); NRBC Abs Auto 0.000 X10*3/uL (0.0-0.012); NRBC Pct Auto 0.0 /100WBC (0.0-0.2); Platelet Count 302 X10*3/uL (160-400); Red Blood Count 5.06 X10*6/uL (4.60-5.80); White Blood Count 10.2 X10*3/uL (4.8-10.8)
[2025-04-30 11:19] LABS: Appearance Urine Clear; Glucose Urine UA Negative (Negative); PH 7.0 (5.0-9.0); Specific Gravity - Urine 1.015 (1.005-1.025)
[2025-04-30 11:28] LABS: Alanine Aminotransferase 50 U/L (0-40); Albumin Level 4.5 g/dL (3.5-5.0); Alkaline Phosphatase 59 U/L (39-117); Anion Gap 13 (12-20); Aspartate Amino Transferase 34 U/L (5-37); Blood Urea Nitrogen 8 mg/dL (9-16); Calcium 9.3 mg/dL (8.4-10.2); Carbon Dioxide 27 mmol/L (22-29); Chloride 101 mmol/L (96-108); Cholesterol 236 mg/dL (<200); Estimated Glomerular Filt Rate > 60; HDL Cholesterol 48 mg/dL (>40); Potassium 3.9 mmol/L (3.3-5.1); Sodium 137 mmol/L (135-145); Total Protein 7.5 g/dL (6.5-8.0); Triglycerides 263 mg/dL (<150)
[2025-04-30 11:49] LABS: PSA,Total (Free>4and<10) 0.64 ng/mL (0.00-4.00)
--- OUTSIDE RECORDS SUMMARY | 2025-04-30 12:12 | XMS_ITS ---
Author Name [facility] Organization Unknown History of Medication Use Medication Directions Dispensed Refills Start Date End Date Stat us citalopram (CeleXA) 20 MG tablet Take 1 tablet (20 mg total) by mouth daily. 12/11/2023 active amLODIPine (NORVASC) 10 MG tablet Take 1 tablet (10 mg total) by mouth. 09/10/2023 active VALSARTAN PO Take by mouth. 09/10/2023 a ctive [place] 3 1000 MG Cap capsule Take 1,000 mg by mouth daily. Administer whole. Do not break. active Encounters Encounter Type Encounter Reason Primary Diagnosis Location Date Ambulatory Other dysphagia Other dysphagia [facility] 03/29/2024 Ambulatory Other dysphagia Other dysphagia [facility] 02/23/2024 Ambulatory Other dysphagia Other dysphagia [facility] 01/06/2024 Care Team Organization Name Specialty Phone Email Start Date End Da te [facility] 01/06/2024 10/11/2024 [facility] [employer] [facility] 12/28/2023
--- OUTSIDE RECORDS SUMMARY | 2025-04-30 12:12 | XMS_ITS | Clinical Summary ---
Author Organization [facility] Address [address] [place] [phone] Phone Care Team Providers Care Cash Clerk Name Role Phone Jimmy Toure MD Primary Care Provider Social History Tobacco Use Types Packs/Day Years Used Date Smoking Tobacco: Never Assessed Education Answer Date Recorded Are you interested in more education? Not on thanh e 11/20/2022 Are you concerned about learning? Not on file 11/20/2022 No 11/20/2022 No 11/20/2022 Digital Access Answer Date Recorded No 12/19/2022 No 12/19/2022 No 12/19/2022 Reliable internet access at home? Not on file 12/19/2022 Device with a working camera? Not on file Sex and Gender Information Value Date Recorded Sex Assigned at Not on file Legal Sex Male 4:21 PM EDT Gender Identity Not on file Sexual Orientation Not on file Plan of Treatment Health Maintenance Due Date Last Done Comments Adult Td,Tdap Booster 1985 DEPRESSION SCREENING 1995 SMOKING Hx and SMOKELESS TOBACCO SCREENING 1996 INFLUENZA VACCINE (#1) 2025 COVID-19 VACCINE (2023-2 5 season) 2025 LIPID PANEL 03/26/2027 03/26/2022 HEPATITIS C SCREENING Completed 03/26/2022 , 01/01/2021 HIV ONE-TIME SCREENING (18-6 5 YEARS) Completed 03/26/2022 HEPATITIS A VACCINES Aged Out No long er eligible based on patient's age to complete this topic HIB VACCINES Aged Out No longer eligi ble based on patient's age to complete this topic MENINGOCOCCAL VACCINES (ACWY) Aged Out No longer eligible based on patient's age to complete this topic MENINGOCOCCAL VACCINES (B) Aged Out N o longer eligible based on patient's age to complete this topic PNEUMOCOCCAL VACCINES (0-49 years) Aged Out No longer eligible b ased on patient's age to complete this topic Medical Devices Not on file Procedures Procedure Name Priority Date/Time Associated Diagnosis Comments LIPID PANEL Routine 03/26/2022 4:11 PM EDT Hyperglyceridemia HEPATITIS C ANTIBODY, QUALITATIVE Routine 03/26/2022 4:11 PM EDT Male infertility from Last 3 Months or Most Recently Relevant to Health Maintenance Results * Hepatitis C antibody, qualitative (03/26/2022 4:11 PM EDT) HCV NON-REACTIV E NON-REACTI VE [facility] Blood 03/26/2022 4:11 PM EDT 03/26/2022 4:15 PM EDT Angela Rollins MD LAB BLOOD ORDERABLES Final Result Performing Organization Address City/State/[facility] Co de Phone Number [address] [phone] * (ABNORMAL) Lipid panel (03/26/2022 4:11 PM EDT) HDL 65 mg/dL [facility] Comment: Interpretation <40 mg/dL: Low HDL cholesterol (major risk factor for CHD) Greater than or equal to 60 mg/dL: High HDL cholesterol ( negative risk factor for CHD) HDL - cholesterol is affected by a number of factors, e.g. smoking, excerise, hormones, sex and age. CHOLESTEROL 251(H) 0 - 240 mg/dL [facility] TRIGLYCERIDES 340(H) 30 - 160 mg/dL [facility] LDL 118 50 - 129 mg/dL [facility] Comment: LDL levels in terms of risk for coronary heart disease: <100 mg/dL: Optimal 100-129 mg/dL: Near or above optimal 130-159 mg/dL: Borderline high 160-189 mg/dL: High >190 mg/dL: Very High CARDIAC RISK RATIO 3.9 3.4 - 5.0 C [facility] Blood 03/26/2022 4:11 PM EDT 03/26/2022 4:15 PM EDT Jimmy Toure MD LAB BLOOD ORDERABLES Fi nal Result [address] [address] from Last 3 Months or Most Recently Relevant to Health Maintenance Insurance O O O O O HMO HMO O O Care Teams Cash Clerk Relationship Specialty Start Date End Date Jimmy Toure MD [address] [place] [address] PCP - General Internal Medicine 12/21/19 Additional Source Comments The information contained in this document represents components of the legal health record. It is not the complete legal health record.[facility]
--- OUTSIDE RECORDS SUMMARY | 2025-04-30 12:12 | XMS_ITS | Patient Health Record ---
Author Organization Jimmy Toure MD Address [address] [place], [place] [id number] Care Team Providers Care Piercing Artist Name Role Phone Jimmy Toure Primary Care Provider Allergies No Known Allergies Results Component Value Reference Range Notes Occult Blood, Stool, Guaiac Reviewed date:05/05/2024 02:02:19 PM Interpretation:Negative Performing Lab: Notes/Report: Negative Occult Blood, Stool, Guaiac Neg Liver Panel Reviewed date:10/12/2024 12:30:41 PM Interpretation:CBACK 10/12/24 Performing Lab:[facility], [address] [place] [phone] Notes/Report: Bilirubin Total 1.0 0.0-1.0 mg/dL Bilirubin Direct 0.4 0.0-0.5 mg/dL Aspartate Amino Transferase 62 5-37 U/L Alanine Aminotransferase 80 0-40 U/L Total Protein 8.2 6.5-8.0 g/dL Albumin Level 4.5 3.5-5.0 g/dL Alkaline Phosphatase 58 39-117 U/L Comprehensive Met. Panel (No t yet reviewed by provider) Interpretation: Performing Lab:[facility], [address] [place] [phone] Notes/Report: Sodium 137 135-145 mmol/L Potassium 3.9 3.3-5.1 mmol/L Chloride 101 96-108 mmol/L Carbon Dioxide 27 22-29 mmol/L Anion Gap 13 12-20 Blood Urea Nitrogen 8 9-16 mg/dL Creatinine 0.94 0.5-1.4 mg/dL Estimated Glomerular Filt Rate > 60 Chronic Kidney Disease: Estimated GFR < 60 mL/min/1.73m2 Severe Kidney Disease: Estimated GFR < 15 mL/min/1.73m2 Glucose Random 132 60-115 mg/dL Calcium 9.3 8.4-10.2 mg/dL Bilirubin Total 0.4 0.0-1.0 mg/dL Aspartate Amino Transferase 34 5-37 U/L Alanine Aminotransferase 50 0-40 U/L Total Protein 7.5 6.5-8.0 g/dL Albumin Level 4.5 3.5-5.0 g/dL Alkaline Phosphatase 59 39-117 U/L Complete Blood Count Auto Di ff (Not yet reviewed by provider) Interpretation: Performing Lab:[facility], [address] [place] [phone] Notes/Report: White Blood Count 10.2 4.8-10.8 X10*3/uL [...] 0.000 0.0-0.012 X10*3/uL Lipid Panel (Not yet review ed by provider) Interpretation: Performing Lab:[address] [phone] Notes/Report: Triglycerides 263 <150 mg/dL Desirable Triglyceride: [...] t yet reviewed by provider) Interpretation: Performing Lab:[address] [phone] Notes/Report: PSA,Total (Free>4and<10) 0.64 0.00-4.00 ng/mL A [...] (Not yet reviewed by provider) Interpretation: Performing Lab:[address] [phone] Notes/Report: Urine, Clean Catch Color Urine Yellow Appearance Urine Clear PH 7.0 5.0-9.0 Glucose Urine UA Negative Negative mg/dL Urine Blood Negative Negative Specific [place] - Urine 1.015 1.005-1.025 Urine Protein Negative Neg-Trace mg/dL Urine Ketones Negative Negative mg/dL Nitrite Urine Negative Negative Leukocyte Esterase Urine Negative Negative RBC Urine 0-2 0-2 /HPF WBC Urine 0-5 0-5 /HPF Squamous Epithelial Cell Urine 0-2 0-2 /HPF Bacteria Urine None Seen None Seen Hyaline Casts Urine 0-2 0-2 /LPF Reason For Referral No Information Medications Medication [...] Once a day for 30 day(s) Not-Taking Pantoprazole Sodium 40 MG TAKE 1 TABLET BY MOUTH EVERY DAY FOR 30 DAYS for 90 Active Valsartan-hydroCHLOROthia zide 320-12.5 MG 1 tablet Orally Once a day for 90 days Active amLODIPine Besylate 10 MG take 1 tablet by mouth every day Orally Once a day for 90 days Active Indomethacin 50 MG 1 capsule with food or milk Orally Three times a day for 10 days 11/07/2020 Active Immunizations Vaccine Route Administration Date Status [...] Status W/U Status Risk Notes Problem Lymphocytosis (55657297) Lymphocytosis (D72.820) Active confirmed Problem 01107481 Anxiety (F41.9) Active confirmed Problem 53269361 Essential hypertension (I10) Active confirmed Problem 8954899975354345 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 confirmed Problem Hypertriglyceridemia (392744874) Hypertriglyceridemia (E78.1) Active confirmed Problem Posttraumatic stress disorder (06544589) PTSD (post-traumatic stress disorder) (F43.10) Active confirmed Problem 837652285 BMI 31.0-31.9,ad ult (Z68.31) Active confirmed Problem 203310212 Gastroesophageal reflux disease with esophagitis without hemorrhage (K21.00) Active confirmed Problem 76143594 Stricture esopha demi (K22.2) Active confirmed Problem 29285732 Achalasia, esoph ageal (K22.0) Active confirmed Vital Signs Blood pressure diastolic 82 mm Hg 10/12/2024 phi ght is up 10 pounds since 05-05-24 Height 69 in 10/12/2024 weight is up 10 pounds since 05-05-24 Blood pressure systolic 120 mm Hg 10/12/2024 weig ht is up 10 pounds since 05-05-24 Weight 215 lbs 10/12/2024 weight is up 10 pounds since 05-05-24 BMI 31.75 kg/m2 10/12/2024 weight is up 10 pounds since 05-05-24 Encounters Encounter Location Date Provider Diagnosis Jimmy Toure MD [address] [place] [address] Drive [address] [place] [id number] 10/02/2024 Jimmy Toure Elevated LFTs R79.89 Jimmy Toure MD [address] [place] [address] Drive [address] [place] [id number] 04/30/2025 Jimmy Toure Blood tests for rout ine general physical examination Z00.00 ; Essential hypertension I10 ; Lymphocytosis D72.820 and Hypertriglyceridemia E78.1 Jimmy Toure MD [address] [place] [id number] 05/05/2024 Jimmy Toure Essential hypertensi on I10 ; Annual physical exam Z00.00 ; Anxiety F41.9 ; PTSD (post-traumatic stress disorder) F43.10 ; Achalasia, esophageal K22.0 ; History of gout Z87.39 ; Elevated LFTs R79.89 ; Colon cancer screening Z12.11 and Depression screening Z13.31 Jimmy Toure MD [address] [place] [id number] 10/12/2024 Jimmy Toure Elevated LFTs R79.89 Assessments Encounter Date Diagnosis (ICD Code) Assessment Notes Treatment Notes Treatment Clinical Notes Section Notes 10/02/2024 Elevated LFTs (ICD-1 0 - R79.89) 04/30/2025 Blood tests for rout ine general physical examination (ICD-10 - Z00.00) 05/05/2024 Essential hypertensi on (ICD-10 - I10) need testerone level. bp sitll a little high but doesn't take medicines, testosterone is pending with [facility] 05/05/2024 Annual physical exam (ICD-10 - Z00.00) labs reviewed and discussed with patient 10/12/2024 Elevated LFTs (ICD-1 0 - R79.89) advised to hopefully can decrease alcohol/ will continue to monitor and recheck in 04/30/2025 Essential hypertensi on (ICD-10 - I10) 05/05/2024 Anxiety (ICD-10 - F41.9) stable 04/30/2025 Lymphocytosis (ICD-1 0 - D72.820) 05/05/2024 PTSD (post-traumatic stress disorder) (ICD-10 - F43.10) seeing a counciller 04/30/2025 Hypertriglyceridemia (ICD-10 - E78.1) 05/05/2024 Achalasia, esophagea l (ICD-10 - K22.0) seeing a psych in [place] 05/05/2024 History of gout (ICD -10 - Z87.39) 05/05/2024 Elevated LFTs (ICD-1 0 - R79.89) says he is drinking too much. will recheck in six months 05/05/2024 Colon cancer screeni ng (ICD-10 - Z12.11) guaiac negative 05/05/2024 Depression screening (ICD-10 - Z13.31) negative screen Plan Of Treatment Pending Test Test Name Order Date XR GI SERIES 04/06/2023 Complete Blood Count Auto Diff 5 Comprehensive Met. Panel 04/30/2025 Comprehensive [place]. Panel Fast 5 Lipid Panel 04/30/2025 PSA,Total (Free>4and<10) 04/30/2025 UA ClnCatch+Micro w/rflx Cult 04/30/2025 Next Appt Details Provider Name:Jimmy Mtz ier, 05/31/2025 01:45:00 PM, [address] [place] [address], [address], [place], [place], [phone], Insurance Providers Payer Name Payer Address Payer Phone Subscriber Number Group Number Insured Name Patient Relationship to Insured Coverage Start Date Coverage End Date [employer] [address] [place], [place] [phone] [id number] ALINE NORWOOD Self - patient is the insured Medical (General) History Medical History History ICD Code Lymphocytosis Lymphocytosis D72.820 08/04/23 colonoscopy pending path
--- OUTSIDE RECORDS SUMMARY | 2025-04-30 12:12 | XMS_ITS | Encounter Summary ---
Author Organization [facility] Address [address] [place] [address] Care Team Providers Care Racing Car Driver Name Role Phone Jimmy Toure MD Primary Care Provider [phone] Encounter Details Date Type Department Care Team (Late st Contact Info) Description 01/05/2024 Scanned Document [facility] GASTRO SCAN Gastroenterology, Scan Social History Tobacco Use Types Packs/Day Years Used Date Smoking Tobacco: Never Assessed Sex and Gender Information Value Date Recorded Sex Assigned at Male 12/29/2023 11:32 AM EDT Legal Sex Male 3:29 PM EDT Gender Identity Male 12/29/2023 11:32 AM EDT Sexual Orientation Heterosexual (straight) 12/28 11:32 AM EDT documented as of this encounter Plan of Treatment Not on file documented as of this encounter Visit Diagnoses Not on filedocumented in this encounter Care Teams Racing Car Driver Relationship Specialty Start Date End Date Jimmy Toure MD [address] [place] [address] [place] [address] PCP - General Internal Medicine 12/28/23 documented as of this encounter
--- OUTSIDE RECORDS SUMMARY | 2025-04-30 12:12 | XMS_ITS | Patient Health Record ---
Author Organization [facility] Address [address] [place] [phone] Care Team Providers Care Senior Specialist Name Role Phone Jimmy Toure MD Primary Care Provider Tanmay Adkins Jr [phone] Allergies No Known Allergies Reason For Referral No Information Medications Medication SIG (Take, Route, Frequency, Duration) Notes Start Date End Date Status Valsartan-hydroCHLOROthiazi de 320-12.5 MG TAKE 1 TABLET BY MOUTH EVERY DAY FOR 90 DAYS Oral for 90 Active Citalopram Hydrobromide 20 MG Oral for 90 Active amLODIPine Besylate 10 MG Oral for 90 Active Pantoprazole Sodium 40 MG TAKE 1 TABLET BY MOUTH EVERY DAY FOR 30 DAYS Oral for 90 Active Immunizations Vaccine Route Administration Date Status Comme nts Influenza Unknown 07/28/2023 Refused Social History Tobacco Use: Social History Observation Description Date Details (start date - stop date) Never Smoker NA - NA Tobacco Use/Smoking Question Answer Notes Patient is a nonsmoker Alcohol Screen Question Answer Notes Did you have a drink contain ing alcohol in the past year? Yes How often did you have a dri nk containing alcohol in the past year? 4 or more times a week (4 points) How many drinks did you have on a typical day when you were drinking in the past year? 3 or 4 drinks (1 point) How often did you have 6 or more drinks on one occasion in the past year? Never (0 point) Points 5 Interpretation Positive Problems Problem Type SNOMED Code ICD Code Onset Dates Problem Status W/U Status Risk Notes Problem Achalasia (25205494) Achalasia (K22.0) Active confirmed Problem 633709902 Abnormal UGI series (R93.3) Active confirmed Problem 72932796 Esophageal dysphagia (R13.19) Active confirmed Plan Of Treatment Future Test Test Name Order Date UPPER GI ENDOSCOPY [place] DILATION OF ESOPH 07/28/2023 Insurance Providers Payer Name Payer Address Payer Phone Subscriber Number Group Number Insured Name Patient Relationship to Insured Coverage Start Date Coverage End Date [facility] [address] [place] [phone] [id number] ALINE NORWOOD Self - patient is the insured Medical (General) History Medical History History ICD Code Hypertension Anxiety Gastroesophageal reflux disease Lymphocytosis Surgical History Surgery Date(Month/Year)
--- OUTSIDE RECORDS SUMMARY | 2025-04-30 12:12 | XMS_ITS | Encounter Summary ---
Author Organization [facility] Address [address] [place] [address] Care Team Providers Care Hydroelectric Station Operator Name Role Phone Jimmy Toure MD Primary Care Provider [phone]- [phone] Encounter Details Date Type Department Care Team (Late st Contact Info) Description 12/28/2023 Scanned Document [facility] GASTRO SCAN Gastroenterology, Scan Social History [...] on filedocumented in this encounter Care Teams Hydroelectric Station Operator Relationship Specialty Start Date End Date Jimmy Toure MD [address] [place] [address] [place] [address] PCP - General Internal Medicine 12/28/23 documented as of this encounter
--- OUTSIDE RECORDS SUMMARY | 2025-04-30 12:12 | XMS_ITS | Clinical Summary ---
Author Organization Formerly [facility] Address [address] [place] [address] Care Team Providers Care [employer] Name Role Phone Jimmy Toure MD Primary Care Provider Allergies No known active allergies Medications amLODIPine (NORVASC) 10 MG tablet Take 1 tablet (10 mg total) by mouth. 4 Active citalopram (CeleXA) 20 MG tablet Take 1 tablet (20 mg total) by mouth daily. 4 Active VALSARTAN PO Take by mouth. 4 Active [place] 3 1000 MG Cap capsule Take 1,000 [...] 81 03/29/2024 10:50 AM EDT Temperature 36.3 C (97.4 F) 03/29/2024 10:20 AM EDT Respiratory Rate 14 03/29/2024 10:50 AM EDT [...] - 19+ 3-dose series) 2002 Influenza Vaccine 02/23/2025 COVID-19 Vaccine (1 - 2023-2 5 season) 2025 HIV Screening Completed 03/26/2022 HPV Vaccines (No Doses Required) Completed Pneumococcal Vaccine: Pediat eliezer (0-5 Years) and At-Risk Patients (6 to 49 Years) Aged Out No longer eligible b ased on patient's age to complete this topic Insurance MELYSSA AMBROSE OUT OF [facility] Care Teams [employer] Relationship Specialty Start Date End Date Jimmy Toure MD [address] [place] [address] [place] [address] PCP - General Internal Medicine 12/28/23
== END 2025-04-30 10:25 | disposition home or self-care (01) ==
LOC: HO.LNP 10:24
PROVIDERS: Visit Provider Internal Medicine
DX: Z00.00 Encounter for general adult medical examination without abnormal findings (principal); Z12.5 Encounter for screening for malignant neoplasm of prostate; I10 Essential (primary) hypertension; D72.820 Lymphocytosis (symptomatic); E78.1 Pure hyperglyceridemia
CPT/HCPCS: 80053; 80061; 81001; 84153; 85025